=== PATIENT | female | born 1965 | race Caucasian/White ===

== ENCOUNTER → 2017-10-25 13:54 | Outpatient (CLI) | payer MEDICAID, SELFPAY ==
[2017-10-26 11:42] LABS: Hepatitis B Surface Ag Negative (NEGAT)
[2017-10-26 11:46] LABS: Hep A Total Ab w Rflx IgM Negative (NEGAT); Hep B Core Antibody Positive (NEGAT)
[2017-10-26 12:00] LABS: HIV-1/2 Ag & Ab Screen Negative (NEGAT)
[2017-10-26 12:14] LABS: HBs Antibody, Quant <3.1 mIU/mL; Hepatitis B Surface Ab Negative
[2017-10-26 13:03] LABS: HCV RNA Detection Quantitative 15955 IU/mL (UNDECT)
== END ==
PROVIDERS: PCP Nurse Practitioner; Visit Provider Nurse Practitioner
DX: B19.20 Unspecified viral hepatitis C without hepatic coma (principal); Z11.4 Encounter for screening for human immunodeficiency virus [HIV]; Z01.84 Encounter for antibody response examination
CPT/HCPCS: 36415; 86704; 86706; 86709; 87340; 87389; 87522

== ENCOUNTER 2017-12-13 01:41 | Outpatient (CLI) | payer MEDICAID, SELFPAY ==
[2017-12-13 14:28] LABS: Abs Immature Grans 0.01 k/cumm (0.0-0.09); Absolute Basophil Count 0.01 k/cumm (0.0-0.2); Absolute Eosinophil Count 0.14 k/cumm (0.0-0.7); Absolute Lymphocyte Count 2.02 k/cumm (1.2-3.4); Absolute Monocyte Count 0.32 k/cumm (0.11-0.7); Absolute Neutrophil Count 3.81 k/cumm (1.2-6.7); Basophils % 0.2; Eosinophils % 2.2; HCT 43.4 % (36.0-46.0); HGB 14.3 g/dL (12.0-15.5); Immature Grans % 0.2; Mean Corp. HGB Concentration 32.9 g/dL (32.0-36.0); Mean Corpuscular Hemoglobin 29.1 pg (27.0-33.0); Mean Corpuscular Volume 88.2 fL (80-95); Monocytes % 5.1; Neutrophils % 60.3; Platelet Count 139 x1000/uL (130-400); RBC 4.92 m/cumm (4.00-5.20); RBC Distribution Width 13.7 % (11.7-14.6); White Blood Cell Count 6.31 k/cumm (4.4-10.8)
[2017-12-13 16:01] LABS: ALT 35 U/L (12-78); AST 23 U/L (15-37); Albumin 3.5 g/dL (3.4-5.0); Alkaline Phosphatase 94 U/L (46-116); Anion Gap 8.6 mmol/L (3-11); BUN 22 mg/dL (7-18); Bilirubin, Total 0.2 mg/dL (0.2-1.0); CO2 26.4 mmol/L (21.0-32.0); CREATININE 0.73 mg/dL (0.55-1.02); Chloride 102 mmol/L (98-107); Glucose 75 mg/dL (70-100); Potassium 4.5 mmol/L (3.5-5.1); Sodium 137 mmol/L (136-145); Total Protein 8.2 g/dL (6.4-8.2)
[2017-12-14 12:57] LABS: Calcium 8.9 mg/dL (8.5-10.1)
[2017-12-14 20:36] LABS: ALT 29 U/L (7-45); ActiTest Grade A0-A1; ActiTest Interpretation no activity; ActiTest Score 0.18; Alpha-2-Macroglobulin 504 mg/dL (100 - 280); Apoliprotein A1 111 mg/dL (>=140); Bilirubin, Total 0.3 mg/dL (<=1.2); FibroTest Interpretation moderate fibrosis; FibroTest Score 0.48; FibroTest Stage F2; GGT 18 U/L (5 - 36); Haptoglobin 188 mg/dL (30 - 200)
== END 2017-12-13 02:01 ==
PROVIDERS: PCP Nurse Practitioner; Visit Provider Nurse Practitioner
DX: B19.20 Unspecified viral hepatitis C without hepatic coma (principal)
CPT/HCPCS: 36415; 80053; 82172; 82247; 82977; 83010; 83883; 84460; 85025

== ENCOUNTER 2018-03-21 15:44 | Inpatient (IN) | payer MEDICAID, SELFPAY ==
[2018-03-21] VITALS (101 sets, daily range): BP systolic 48–105; BP diastolic 29–79; PULSE 68–110; RESP 14–46; TEMP 36–36.6; O2SAT 93–100
--- NOTE | 2018-03-21 16:17 | ED.GENADUL_ITS ---
Discharge Plan Disposition Patient Disposition: [facility] INPATIENT Condition: Serious Discharge Details Chief Complaint: GenMedical Clinical Impression: Pneumonia, Sepsis, Acute kidney injury Reason For Visit: SEPSIS Admit Date/Time: 03/21/18 19:14 Admit Provider: Donaldo Real Attending Provider: Donaldo Real Primary Care Provider: Carla Corrales ED Provider: Nilda Lozoya Discharge Data Discharge Date/Time-TO BE ENTERED AT DEPARTURE: 03/21/18 19:25 Medical Decision Making <CATY Thompson - Last Filed: 03/22/18 17:41> Patient 53-year-old female presenting today with chief complaint of feeling si ck. Patient injects fentanyl multiple times daily. She reports that yesterday she ran out of this and an attempt to get high, use an old needle that had what appeared to be old blood in it. She states that a few hours after this injection, which was into her right forearm, she began feeling ill. Endorses fatigue, back pain, extremity pain, chills, nausea. Patient has known history of hepatitis C. Denies SOB or CP. No abdominal pain. Came off of Suboxone 2 weeks ago as she was also using IV fentanyl. Unknown fevers at home. Patient appears fatigued, pale with slight cyanosis of the lips. Patient hypotensive at 59/39, tachycardic at 102, temperature is low at 36.1. Oxygen 94% on room air. Lungs are clear. She is moving air comfortably. No murmur. Multiple area of injection sites with surrounding ecchymosis and track umana to bilateral lower extremities and upper extremities, more on the right side than the left. Injection site used for recent dirty needle to right forearm with No cough or URI symptoms. Denies any pinpoint pain, is rather endorsing diffuse discomfort. Dr. Cano also evaluated the patient, with BP is concerned that patient needs central line. He is placing central line now. Patient currently receiving hydration. EKG obtain and reviewed by Dr. Cano. Lactate 3.2 Patient will be started on Vanco and Cefepime. She has documented allergy to Penicillin but is unclear what occurs with this, she has been on Keflex previously and tolerated this well. Labs reviewed, WBC 14, platelet 64, patient has had low platelets historically but this is lower than typical. Anion gap 16, creatinine 2.44. AST 187, ALT 142. Patient has history of hepatitis C but has not been elevated like this historically. Total bili 4.2. CRP 6.25. Currently treating for acute kidney injury and sepsis. Patient receiving IV abx, fluid resucitation through central line and peripheral. Despite this, pressure dropped again to 52/29. Discuss[address] with Dr. Cano, starting on Levophed. Will obtain portable chest xr. CXR reviewed by radiologist: FINDINGS: Lungs: Mild hazy attenuation in the lung bases. Pleural space: Unremarkable. No pleural effusion. No pneumothorax. Heart/Mediastinum: Unremarkable. No cardiomegaly. Bones/joints: Chronic osseous changes. IMPRESSION: Atelectasis versus consolidation in the lung bases. Patient now endorsing SOB, O2 placed. Patient has good O2 on RA still. Levophed increased from 8 to 10mcg. Consulted with Dr. Real who agrees to admission, he is coming in to admit to ICU. Plan to admit for sepsis, acute kidney injury, pneumonia. Illness likely stemming from IVDU. <Paulo Cano MD - Last Filed: 03/21/18 21:28> 18:55 -- I participated directly with the care of this patient. Please see CATY Lozoya's note regarding initial ED presentation and initial course. Patient was noted to be hypotensive with poor IV access. Patient in critical care my initial assessment. I immediately evaluated the patient pt provided informed consent for emergent central line. A right femoral central line was placed without complication. Was also able to place an 18g right external ju gular peripheral IV. ECG was reviewed and interpreted by me: Sinus tachycardia 102 bpm, normal axis, Q waves are noted inferior and laterally, no STEMI. Labs were reviewed: Lactate was noted to be 3.2. Leukocytosis noted. Acute kidney injury with creatinine of 2.44 noted. Elevated LFTs noted. Patient without tenderness on abdominal exam. Blood cultures pending. Patient was aggressively resuscitated with 3.5 L of crystalloid and was started on a Levophed infusion. She remained hypotensive. Levophed infusion was titrated up to 10 mcg/min. Broad-spectrum antibiotic coverage was initiated early in her course with vancomycin and cefepime. Chest x-ray was interpreted by radiology as atelectasis versus consolidation bilateral bases. Patient was noted to have some shortness of breath and cough on exam. Patient complaining of bilateral foot pain. She has dopplerable pulses posterior tibial bilateral noted by nursing. Of note, patient has had difficulty finding pedal pulses on past ED visits. Dr. Real was contacted to admit the patient to the ICU for septic shock. Care transition to Dr. Real who is at bedside at 18:50. HPI <CATY Thompson - Last Filed: 03/22/18 17:41> General Mode of arrival: ambulatory . Date/Time Provider Initiated Documentation: 03/21/18 15:48 . Limitations to Documentation: no limitations . Information obtained by: patient . History of Present Illness 53 year old F presents to the emergency department with the chief complaint of sick, described as severe, Quality is described as aching, and is localized to the back, left, right, upper extremity and lower extremity. Patient reports no radiation. Patient started experiencing this hour(s) and it has been constant. No relieving factors improve symptom(s), No exacerbating factors reported . Patient notes fever/chills (endorses chills), loss of appetite, nausea/vomiting (nausea, no vomiting) and shortness of breath; denies chest pain, cough, diaphoresis, headaches, rash and weakness. Patient did receive the following treatments prior to arrival, none Related Data Home Medications Medication Instructions Recorded Confirmed aripiprazole [Abilify] 5 mg PO DAILY tab-cap 08/29/13 03/21/18 doxepin 10 mg PO HS 08/29/13 03/21/18 ProAir HFA 2 puff INHALATION Q6H #1 inh 02/13/14 03/21/18 buprenorphine-naloxone 2 tab PO DAILY 02/13/14 03/21/18 sertraline [Zoloft] 200 mg PO DAILY 02/13/14 03/21/18 cyclobenzaprine 10 mg PO Q8H PRN PRN #10 tab 02/25/17 03/21/18 Previous Rx's Medication Instructions Recorded ProAir HFA 2 puff INHALATION Q6H #1 inh 02/13/14 cyclobenzaprine 10 mg PO Q8H PRN PRN #10 tab 02/25/17 Allergies Allergy/AdvReac Type Severity Reaction Status Date / Time gabapentin [From Neurontin] Allergy DIZZINESS, Unverified 03/21/18 16:03 NAUSEA, SWELLING, BODY JERKS Penicillins Allergy unsure Unverified 03/21/18 16:03 duloxetine HCl AdvReac BLURRY Unverified 03/21/18 16:03 [From Cymbalta] VISION, ALTERED TASTE, NAUSEA Review of Systems <CATY Thompson - Last Filed: 03/22/18 17:41> Constitutional Reports as per HPI, Denies chills, Denies fever(s), Denies headache(s), Denies lethargy and Denies poor appetite Eyes Denies change in vision ENT Denies headache(s) Cardiovascular Reports as per HPI, Reports dyspnea and Reports dyspnea on exertion Respiratory Denies cough, Denies hemoptysis, Denies pain on inspiration, Denies pain with cough, Reports dyspnea, Reports dyspnea on exertion and Denies wheezing Gastrointestinal Reports as per HPI, Denies abdominal pain, Denies diarrhea, Denies nausea and Denies vomiting Musculoskeletal Reports as per HPI and Reports back pain Integumentary/Breasts Reports as per HPI and Denies rash Neurologic Denies headache(s) Allergic/Immunologic Denies wheezing PFSH <CATY Thompson - Last Filed: 03/22/18 17:41> Medical History Alcohol abuse Chronic ulcer of leg with fat layer exposed Depression Dysfunctional uterine bleeding GERD (gastroesophageal reflux disease) Hep C w/o coma, chronic Hypercholesterolemia IV drug abuse Surgical History section Colonoscopy - MAC EGD - MAC Social History Smoking/Tobacco Use Status: Current every day Exam <CATY Thompson - Last Filed: 03/22/18 17:41> Const General: cooperative, acute distress mild, anxious, diaphoretic and ill appearing acutely and chronically Nutritional Appearance: average body habitus Orientation: alert, awake and oriented x3 HENMT Head: normal to inspection Ears: hearing grossly normal bilaterally Mouth: mucous membranes dry (patient appears dry) Neck Neck: normal visual inspection, no lymphadenopathy and no meningeal signs Chest Chest: normal inspection of the chest, normal palpation of entire chest wall and no crepitus Resp Effort & Inspection: normal respiratory effort, able to speak in complete sentences and no respiratory distress Auscultation: clear to auscultation bilaterally, no rales, no rhonchi and no wheezes Cardio Rate: regular rate Rhythm: regular rhythm Heart Sounds: S1 normal and S2 normal GI Inspection: normal to inspection, no edema and non-distended Palpation: soft, no hepatosplenomegaly, not firm, no guarding, not rigid and nontender Auscultation: normal bowel sounds Back/Spine/Pelvis Back: no CVA tenderness Thoracic/Lumbar Spine: thoracic and lumbar spine normal to inspection Skin General skin exam: other (patient is pale, track umana and ecchymosis noted on extremities) Neuro General: alert, awake and oriented x3 Cognition: normal cognition Speech: speech normal Gait: normal gait Extrem General: abnormal to inspection (patient has track umana and ecchymosis on all extremities), full ROM, normal capillary refill, no joint enlargement, no pedal edema, no calf tenderness and normal gait Psych Appearance: grossly normal and well kempt Mental Status: mental status grossly normal Speech and Movement: speech and movement normal <Paulo Cano MD - Last Filed: 03/21/18 21:28> Central Line Placement Right Femoral: Time Out Performed: Yes MD Prep: mask, gown and gloves Central Line Prep: Chlorhexidine scrub and sterile drapes applied Local Anesthetic: Lidocaine 1% Amount of anesthesia used (mL): 5 Ultrasound Used for Placement: Yes Central Line Lumen Inserted: triple Post Procedure: good blood return, all ports aspirated, flushed, capped and sutured in place with 3-0 nylon Patient Tolerated Procedure: well and no complications <Paulo Cano MD - Last Filed: 03/21/18 21:28> Critical Care Time: Yes Total Critical Care Time: 80 Attestation: I spent greater than 80 minutes addressing this patient's immediate life threats
--- NOTE | 2018-03-21 16:31 | NUR.NOTE ---
Nursing Note: Central line being placed by MD Cano due to poor IV access.
[2018-03-21 16:39] LABS: Abs Immature Grans 0.31 k/cumm (0.0-0.09); HCT 39.6 % (36.0-46.0); HGB 13.5 g/dL (12.0-15.5); Mean Corp. HGB Concentration 34.1 g/dL (32.0-36.0); Mean Corpuscular Hemoglobin 30.1 pg (27.0-33.0); Mean Corpuscular Volume 88.2 fL (80-95); Mean Platelet Volume 11.6 fL (8.0-11.0); RBC 4.49 m/cumm (4.00-5.20); RBC Distribution Width 13.6 % (11.7-14.6); White Blood Cell Count 14.29 k/cumm (4.4-10.8)
[2018-03-21 16:43] LABS: Lactate 3.2 mmol/L (0.6-1.4)
[2018-03-21 16:46] LABS: INR 1.4 (0.9-1.1); Prothrombin Time 14.2 sec (9.3-11.0)
[2018-03-21 16:51] LABS: Platelet Count 64 x1000/uL (130-400)
[2018-03-21 16:52] LABS: Absolute Lymphocyte Count 0.29 k/cumm (1.2-3.4); Absolute Monocyte Count 1.14 k/cumm (0.11-0.7); Absolute Neutrophil Count 12.86 k/cumm (1.2-6.7); Atypical Lymphocytes % 0; Diff Comment Manual Differential
[2018-03-21 16:54] LABS: Polychromasia Present; Tear Drop Cells 2+
[2018-03-21] MEDS: Normal Saline 1,000 ML 1000 ML IV ×4 (16:55→23:22)
[2018-03-21 16:56] LABS: ALT 142 U/L (12-78); AST 187 U/L (15-37); Alkaline Phosphatase 114 U/L (46-116); Anion Gap 16.1 mmol/L (3-11); BUN 34 mg/dL (7-18); Bilirubin, Total 4.2 mg/dL (0.2-1.0); C-Reactive Protein 6.25 mg/dL (0.0-0.3); CO2 20.9 mmol/L (21.0-32.0); CREATININE 2.44 mg/dL (0.55-1.02); Calcium 8.5 mg/dL (8.5-10.1); Chloride 101 mmol/L (98-107); Estimated GFR 20.64 (mL/min/1.73m2); Glucose 87 mg/dL (70-100); Potassium 3.8 mmol/L (3.5-5.1); Sodium 138 mmol/L (136-145); Total Protein 7.1 g/dL (6.4-8.2)
[2018-03-21 17:08] LABS: Troponin I < 0.02 ng/mL (0.00-0.06)
[2018-03-21 17:16] LABS: ESR 14 MM/HR (0-30)
[2018-03-21] MEDS: CEFEPIME 2 GM in Normal Saline 100 ML IVPB (17:23)
--- NOTE | 2018-03-21 17:28 | DI.RAD_ITS ---
SYMPTOM/DIAGNOSIS: SEPSIS PORTABLE AP CHEST: A region of infiltration involving the right lower lobe is demonstrated. Also there are some ill defined densities projected over the left lung base. There is no pleural effusion. The heart is within normal limits in size. The hilar structures, mediastinum and tracheal air column as demonstrated appear intact. SUMMARY: Findings which most likely represent an acute pneumonitis. A follow up PA and lateral chest is suggested when clinically appropriate or in 6-8 weeks.
[2018-03-21] MEDS: Ondansetron 4 MG/2 ML VIAL (17:35)
[2018-03-21] MEDS: VANCOMYCIN 1,500 MG in Normal Saline 500 ML 333.3333 MG IVPB (18:00)
[2018-03-21] MEDS: Lactated Ringers 1,000 ML 1000 ML IV ×2 (18:00→18:34)
--- NOTE | 2018-03-21 18:02 | DI.VRAD_ITS ---
EXAM: XR Chest, 1 View EXAM DATE/TIME: 03/21/2018 5:43 PM CLINICAL HISTORY: 53 years old, female; Signs and symptoms; Other: Sepsis TECHNIQUE: XR of the chest, 1 view. COMPARISON: CR CHEST 2 VIEWS PA,LAT 04/09/2014 4:02 PM FINDINGS: Lungs: Mild hazy attenuation in the lung bases. Pleural space: Unremarkable. No pleural effusion. No pneumothorax. Heart/Mediastinum: Unremarkable. No cardiomegaly. Bones/joints: Chronic osseous changes. IMPRESSION: Atelectasis versus consolidation in the lung bases. Dictated and Authenticated by: Uvaldo Arevalo MD. Ordering:ISAIAH Munguia MD
--- NOTE | 2018-03-21 18:48 | NUR.NOTE ---
crying that her feet ache. pedal pulses not heard with dopplar but ankle pulses heard.Nursing Note:
--- NOTE | 2018-03-21 19:11 | HPE_ITS ---
Date of service: 03/21/18 Time of Service: 18:57 Assessment and Plan (1) Sepsis: Current visit: Yes Status: Acute Sepsis, presumably secondary to contaminated injection. Unclear if we have a specific locus of infection at present. Specifically, the chest x-ray findings are noted but this would be early to see consolidation from a triggering event only hours ago though certainly we cannot be absolutely sure that the inciting event was in fact this morning's injection. Regardless patient is exhibiting signs and symptoms of septic shock and will continue fluid resuscitation along with pressors and broad-spectrum antibiotics pending culture results. Patient manifesting findings of multiorgan involvement with with acute kidney injury and elevated liver enzyme History of Present Illness Narrative: Patient is a 53-year-old female with history of IV drug abuse. She shot up some fentanyl this morning with a dirty needle. Sometime thereafter she started feeling weak, diffuse myalgias, headache, nausea and generally feeling poorly. Emergency room and was noted to be in septic shock with initial blood pressures in the 50s. Blood cultures were obtained, she has been given fluid resuscitation (4 L at present) and loading doses of vancomycin and cefepime and started on levo. Blood pressure is currently in the 80s. She is admitted for further evaluation and management Past medical history: IV drug abuse, GERD, depression, hep C, dysfunctional uterine bleeding, status post Allergies to gabapentin, question penicillin, Cymbalta Medications: Abilify 5 daily buprenorphine, as needed Flexeril, doxepin 10 at bedtime, Pro Air as needed, Zoloft 200 Exam: Blood pressure currently 82 systolic, pulse 105, temp 36.1. Patient is lying semirecumbent in the stretcher and appears disheveled and modestly uncom fortable. HEENT shows no signs of head trauma. Neck supple lungs show rales right base. Heart tachycardic and regular, no murmurs appreciated abdomen soft nontender without hepatosplenomegaly. Pelvic and rectal exams deferred. Extremities show multiple excoriation and ulceration, the right forearm there is an area of ecchymosis medially just distal to the elbow which the patient identifies as the injection site. Neurologically she is alert and oriented moves all 4 external Laboratory: White count 14.2 hematocrit 39 platelets 60. INR 1.4 (I have no old IN INR) sodium 138 potassium 3.8 chloride 101 bicarb 20 BUN 34 creatinine 2.4 glucose 87 lactate 3.2 total bili 4.2 AST 187 ALT 142 chest x-ray shows probable infiltrate right base, urine is pending Review of Systems Review of Systems All systems reviewed & are unremarkable except as noted in HPI and below PFSH Medical History Alcohol abuse Chronic ulcer of leg with fat layer exposed Depression Dysfunctional uterine bleeding GERD (gastroesophageal reflux disease) Hep C w/o coma, chronic Hypercholesterolemia IV drug abuse Surgical History section Colonoscopy - MAC EGD - MAC Social History Smoking/Tobacco Use Status: Current every day Meds Home Medications Medication Instructions Recorded Confirmed Type aripiprazole [Abilify] 5 mg PO DAILY tab-cap 08/29/13 03/21/18 History doxepin 10 mg PO HS 08/29/13 03/21/18 History ProAir HFA 2 puff INHALATION Q6H #1 inh 02/13/14 03/21/18 Rx buprenorphine-naloxone 2 tab PO DAILY 02/13/14 03/21/18 History sertraline [Zoloft] 200 mg PO DAILY 02/13/14 03/21/18 History cyclobenzaprine 10 mg PO Q8H PRN PRN #10 tab 02/25/17 03/21/18 Rx Allergies Allergy/AdvReac Type Severity Reaction Status Date / Time gabapentin [From Neurontin] Allergy DIZZINESS, Unverified 03/21/18 16:03 NAUSEA, SWELLING, BODY JERKS Penicillins Allergy unsure Unverified 03/21/18 16:03 duloxetine HCl AdvReac BLURRY Unverified 03/21/18 16:03 [From Cymbalta] VISION, ALTERED TASTE, NAUSEA Exam Narrative Exam Narrative: per HPI Results Labs : 03/21/18 16:15 03/21/18 16:15 Laboratory Results - last 24 hr 03/21/18 03/21/18 03/21/18 16:15 16:15 16:15 WBC 14.29 H RBC 4.49 Hgb 13.5 Hct 39.6 MCV 88.2 MCH 30.1 MCHC 34.1 RDW 13.6 Plt Count 64 L MPV 11.6 H Immature Gran % 0.0 Neutrophils % 76.0 Band Neutrophils % 14.0 Lymphocytes % 2.0 Atypical Lymphs % 0 Monocytes % 8.0 Eosinophils % 0.0 Basophils % 0.0 Absolute Neutrophils 12.86 H Absolute Lymphocytes 0.29 L Absolute Monocytes 1.14 H Absolute Eosinophils 0.00 Absolute Basophils 0.00 Differential Comment Manual differential RBC Morphology See below Polychromasia Present Tear Drop Cells 2+ ESR 14 PT INR Sodium 138 Potassium 3.8 Chloride 101 Carbon Dioxide 20.9 L Anion Gap 16.1 H BUN 34 H Creatinine 2.44 H Estimated GFR/1.73 m2 20.64 Glucose 87 Lactate 3.2 H* Calcium 8.5 Total Bilirubin 4.2 H AST 187 H ALT 142 H Alkaline Phosphatase 114 Troponin I C-Reactive Protein 6.25 H Total Protein 7.1 Albumin 3.0 L 03/21/18 03/21/18 16:15 16:15 WBC RBC Hgb Hct MCV MCH MCHC RDW Plt Count MPV Immature Gran % Neutrophils % Band Neutrophils % Lymphocytes % Atypical Lymphs % Monocytes % Eosinophils % Basophils % Absolute Neutrophils Absolute Lymphocytes Absolute Monocytes Absolute Eosinophils Absolute Basophils Differential Comment RBC Morphology Polychromasia Tear Drop Cells ESR PT 14.2 H INR 1.4 H Sodium Potassium Chloride Carbon Dioxide Anion Gap BUN Creatinine Estimated GFR/1.73 m2 Glucose Lactate Calcium Total Bilirubin AST ALT Alkaline Phosphatase Troponin I < 0.02 C-Reactive Protein Total Protein Albumin Last Vital Signs Temp 36.1 C L 03/21/18 15:56 Pulse 98 H 03/21/18 18:40 Resp 31 H 03/21/18 18:41 BP 77/61 L 03/21/18 18:40 Pulse Ox 100 03/21/18 18:41
[2018-03-21 19:14] LABS: Bilirubin Large (Negative); Blood Moderate (Negative); Clarity Cloudy; Glucose Negative (Negative); Ketones 15 mg/dL (Negative); Leukocyte Esterase Negative (Negative); Nitrite Negative (Negative); Specific Gravity 1.025 (1.005-1.025); pH 5.5 (5-8)
[2018-03-21 19:28] LABS: RBC >50 (0-2); WBC Negative HPF (0-5)
[2018-03-21 19:29] LABS: Bacteria Moderate HPF (Negative); Casts 3-5 Fine Granular LPF (Negative); Crystals Negative HPF (Negative); Epithelial Cells Moderate HPF (Negative); Mucus Moderate (Negative); Other Cells Negative (Negative)
[2018-03-21 19:30] LABS: C & S Indicated? No/Sq. Contamination
[2018-03-21] MEDS: Normal Saline Flush 10 ML SYR IVP (20:25)
[2018-03-21] MEDS: PHYTONADIONE 10 MG in Normal Saline 50 ML 200 MG IVPB (20:30)
[2018-03-21] MEDS: Normal Saline 1,000 ML 250 ML IV (20:45)
[2018-03-22] VITALS (120 sets, daily range): BP systolic 81–135; BP diastolic 57–99; PULSE 83–116; RESP 11–45; TEMP 36.5–37.2; O2SAT 90–100
[2018-03-22] MEDS: LORazepam 0.5 MG TAB PO ×4 (04:04→20:20)
[2018-03-22] MEDS: Normal Saline Flush 10 ML SYR IVP ×2 (06:45→11:36)
[2018-03-22 07:06] LABS: HCT 36.2 % (36.0-46.0); HGB 12.2 g/dL (12.0-15.5); Mean Corp. HGB Concentration 33.7 g/dL (32.0-36.0); Mean Corpuscular Hemoglobin 30.2 pg (27.0-33.0); Mean Corpuscular Volume 89.6 fL (80-95); Mean Platelet Volume 12.7 fL (8.0-11.0); Platelet Count 58 x1000/uL (130-400); RBC 4.04 m/cumm (4.00-5.20); RBC Distribution Width 13.9 % (11.7-14.6)
[2018-03-22 07:13] LABS: White Blood Cell Count 32.01 k/cumm (4.4-10.8)
[2018-03-22 07:25] LABS: ALT 195 U/L (12-78); AST 246 U/L (15-37); Anion Gap 13.3 mmol/L (3-11); BUN 27 mg/dL (7-18); Bilirubin, Total 4.1 mg/dL (0.2-1.0); CO2 16.7 mmol/L (21.0-32.0); CREATININE 1.59 mg/dL (0.55-1.02); Calcium 6.5 mg/dL (8.5-10.1); Chloride 110 mmol/L (98-107); Estimated GFR 33.83 (mL/min/1.73m2); Glucose 135 mg/dL (70-100); Potassium 3.8 mmol/L (3.5-5.1); Sodium 140 mmol/L (136-145)
[2018-03-22 07:59] LABS: INR 1.6 (0.9-1.1); Prothrombin Time 15.7 sec (9.3-11.0)
[2018-03-22 08:12] LABS: Creatine Kinase 127 U/L (26-192); Magnesium 1.3 mg/dL (1.8-2.4)
[2018-03-22 08:23] LABS: Lactate 1.8 mmol/L (0.6-1.4)
[2018-03-22] MEDS: Normal Saline 1,000 ML 250 ML IV ×2 (08:30→13:46)
--- NOTE | 2018-03-22 08:58 | DI.CT_ITS ---
SYMPTOMS/DIAGNOSIS: SEPSIS, ? PNEUMONIA, ELEVATED LFTS CT EXAMINATION OF THE CHEST, ABDOMEN AND PELVIS: The study was carried out without contrast enhancement. CHEST: There are small bilateral pleural effusions. Patchy pulmonary densities are most prominent in the right middle lobe, lingula and in both lower lobes. There is no evidence of a mass on this noncontrast enhanced study. There is bilateral hilar and mediastinal adenopathy. The heart is not enlarged. There is no pericardial effusion. The unopacified aorta appears unremarkable save for minimal atherosclerotic change. No significant bony abnormality is identified. SUMMARY: Findings consistent with bilateral pleural effusions, pulmonary infiltrates and hilar and mediastinal adenopathy. These findings could certainly be on the basis of an acute pneumonitis and a concomitant malignancy. Additional information would be of value in the further imaging of this patient. ABDOMEN AND PELVIS: The study was carried out without oral or contrast material in this patient with poor renal function. The unopacified liver appears grossly intact. Note is made of an apparent sizeable quantity of pericholecystic fluid and the border between the pancreas and the adjacent liver is not well defined. Note is also made of ascitic fluid in the abdomen and pelvis. There is no evidence of biliary dilatation. Increased density is noted in the peripancreatic fat and the possibility of pancreatitis would certainly also have to be considered in this patient. Increased density is identified in the mesentery and subcutaneous fat in the abdomen and pelvis, which would be consistent with anasarca. The unopacified kidneys appear intact. There is no evidence of hydronephrosis, or nephrolithiasis or ureterolithiasis. The bladder is decompressed and contains a Bai catheter. A small quantity of gas is noted in the bladder, presumably related to the catheterization procedure. The uterus appears intact. There is a moderate quantity of free fluid in the pelvis. There is some prominence of the adrenals, raising the possibility of adrenal hyperplasia. Note is also made in this patient of a moderate quantity of free fluid in the pelvis. The bladder is decompressed, Bai catheter in place. The reproductive organs as visualized appear grossly normal. There are mild atherosclerotic changes involving the aorta without evidence of an aneurysm. No significant bony abnormality is appreciated. SUMMARY: A small quantity of ascitic fluid is demonstrated with puddling in the pelvis on this examination. There are findings involving the pancreas and peripancreatic tissues, raising the possibility of acute pancreatitis. Also, there is a dilated gallbladder and a considerable quantity of pericholecystic fluid. Increased absorption in the mesenteric fat and increased absorption in the subcutaneous fat is identified in this patient, the findings suggesting anasarca.
[2018-03-22 11:09] LABS: Lactate 1.4 mmol/L (0.6-1.4)
[2018-03-22 11:14] LABS: Site Right Femoral; pCO2 25 mmHg (34-47); pH 7.31 (7.35-7.45); pO2 40 mmHg (83-108)
[2018-03-22 11:15] LABS: HCO3 13 mmol/L (22-28); sO2 72 % (94-98); tCO2 13 mmol/L (22-29)
[2018-03-22] MEDS: MAGNESIUM SULFATE 4 GM/100 ML BAG IVPB (11:34)
--- NOTE | 2018-03-22 13:10 | MERGE_ITS ---
*[facility]* *[facility]* [address] [place] [address] Date of study: 03/22/2018 Transthoracic Echocardiography M-mode, complete 2D, complete spectral Doppler, and color Doppler *STUDY CONCLUSIONS* Impressions: There are no typical features of vegetative endocarditis. Consider transesophageal echocardiography, if clinically indicated. Summary: 1. Left ventricle: The cavity size was normal. Wall thickness was normal. Systolic function was normal. The estimated ejection fraction was 55-60%. Wall motion was normal; there were no regional wall motion abnormalities. 2. Aortic valve: Trileaflet; mildly thickened, mildly calcified leaflets. 3. Mitral valve: Mildly thickened leaflets. There was mild regurgitation. 4. Right ventricle: The cavity size was normal. Wall thickness was normal. Systolic function was normal. 5. Tricuspid valve: Structurally normal valve. There was mild-moderate regurgitation. 6. Pulmonary arteries: Pulmonary systolic pressure was increased, in the range of 35mm Hg to 45mm Hg. *PATIENT PRESENTATION* Height: 160cm ((63in) ) S/D Pressure: 105 / 82 Weight: 73.9kg ((162.7lb) ) BSA: 1.84m^2 Test start time: 01:20 PM. Test stop time: 02:20 PM. PERFORMING Unknown PERFORMING [facility] CONSULTING Carla Corrales REFINERY OPERATOR REFORMING UNIT Brandie Clay RT (R)(CT), CS ORDERING Roxie Reed REFERRING Roxie Reed *PROCEDURE DATA* Procedure information: The patient was identified by two identifiers. This study was interpreted by [facility]. Pertinent images and digital data are archived for permanent storage and are available for subsequent review. No prior study was available for comparison. Study status: Routine. Transthoracic echocardiography. M-mode, complete 2D, complete spectral Doppler, and color Doppler. A Transthoracic Echocardiogram was performed. Scanning was performed from the parasternal, apical, subcostal, and suprasternal notch acoustic windows. Images were obtained using an [id number] cardiac ultrasound machine. Image quality was good. Study completion: The patient tolerated the procedure well. There were no complications. History: PMH: R/o endocarditis. *CARDIAC ANATOMY* Left ventricle: The cavity size was normal. Wall thickness was normal. Systolic function was normal. The estimated ejection fraction was 55-60%. Wall motion was normal; there were no regional wall motion abnormalities. Diastolic parameters were normal for age. Aortic valve: Trileaflet; mildly thickened, mildly calcified leaflets. Mobility was not restricted. Doppler: Transvalvular velocity was within the normal range. There was no stenosis. There was no significant regurgitation. VTI ratio of LVOT to aortic valve: 0.7. Valve area (VTI): 1.7cm^2. Indexed valve area (VTI): 0.9cm^2/m^2. Peak velocity ratio of LVOT to aortic valve: 0.61. Valve area (Vmax): 1.4cm^2. Indexed valve area (Vmax): 0.8cm^2/m^2. Mean velocity ratio of LVOT to aortic valve: 0.78. Valve area (Vmean): 1.8cm^2. Indexed valve area (Vmean): 1cm^2/m^2. Mean gradient (S): 5.9mm Hg. Peak gradient (S): 14.4mm Hg. Aorta: Aortic root: The aortic root was normal in size. Ascending aorta: The ascending aorta was normal in size. Mitral valve: Mildly thickened leaflets. Mobility was not restricted. Doppler: Transvalvular velocity was within the normal range. There was no evidence for stenosis. There was mild regurgitation. Valve area by pressure half-time: 4.1cm^2. Indexed valve area by pressure half-time: 2.2cm^2/m^2. Peak gradient (D): 7.1mm Hg. Left atrium: The atrium was normal in size. Right ventricle: The cavity size was normal. Wall thickness was normal. Systolic function was normal. Pulmonic valve: Structurally normal valve. Doppler: Transvalvular velocity was within the normal range. There was no evidence for stenosis. There was trivial regurgitation. Peak gradient (S): 3.5mm Hg. Tricuspid valve: Structurally normal valve. Doppler: Transvalvular velocity was within the normal range. There was no evidence for stenosis. There was mild-moderate regurgitation. Pulmonary artery: Pulmonary systolic pressure was increased, in the range of 35mm Hg to 45mm Hg. Right atrium: The atrium was normal in size. Pericardium: There was no pericardial effusion. Systemic veins: Inferior vena cava: Well visualized. The vessel was patent and normal in size. Respirophasic changes in dimension were absent. Baseline ECG: Normal sinus rhythm. Measurements Left ventricle Value Reference LV ID, ED, PLAX 4.5 cm 3.5 - 6.0 LV ID, ES, PLAX 3.2 cm 2.1 - 4.0 LV PW thickness, ED, PLAX 0.9 cm LV end-diastolic volume, 1-p A2C 80 ml LV ejection fraction, 1-p A2C 49 % LV end-diastolic volume, 1-p A4C 67 ml LV ejection fraction, 1-p A4C 52 % LV e', lateral 0.09 m/sec LV E/e', lateral 15 LV e', medial 0.11 m/sec LV E/e', medial 12 LV e', average 0.1 m/sec LV E/e', average 13 Ventricular septum Value Reference IVS thickness, ED, PLAX 0.8 cm LVOT Value Reference LVOT ID, A-P 1.7 cm LVOT area 2.4 cm^2 LVOT peak velocity, S 1.16 m/sec LVOT mean velocity, S 0.88 m/sec LVOT VTI, S 18.3 cm LVOT peak gradient, S 5.4 mm Hg LVOT mean gradient, S 3.3 mm Hg Stroke volume (SV), LVOT DP 43 ml Stroke index (SV/bsa), LVOT DP 24 ml/m^2 Aortic valve Value Reference Aortic valve peak velocity, S 1.9 m/sec Aortic valve mean velocity, S 1.13 m/sec Aortic valve VTI, S 26.0 cm Aortic mean gradient, S 5.9 mm Hg Aortic peak gradient, S 14.4 mm Hg VTI ratio, LVOT/AV 0.7 Aortic valve area, VTI 1.7 cm^2 Velocity ratio, peak, LVOT/AV 0.61 Aortic valve area, peak velocity 1.4 cm^2 Velocity ratio, mean, LVOT/AV 0.78 Aortic valve area, mean velocity 1.8 cm^2 Aortic valve area/bsa, mean velocity 1 cm^2/m^2 Aorta Value Reference Aortic root ID, ED 2.7 cm Ascending aorta ID, A-P, S 3.1 cm Left atrium Value Reference LA ID, A-P, ES 4.2 cm LA ID/bsa, A-P (H) 2.3 cm/m^2 <=2.2 LA area, ES, A4C 20.1 cm^2 8.8 - 23.4 LA area, ES, A2C 16 cm^2 LA volume/bsa, ES, 1-p A4C 36 ml/m^2 LA volume, ES, 2-p 58 ml LA volume/bsa, ES, 2-p 31 ml/m^2 LA/aortic root ratio 1.58 Mitral valve Value Reference Mitral E-wave peak velocity 1.34 m/sec Mitral A-wave peak velocity 1 m/sec Mitral deceleration time 185 ms 150 - 230 Mitral pressure half-time 54 ms Mitral peak gradient, D 7.1 mm Hg Mitral E/A ratio, peak 1.33 Mitral valve area, PHT, DP 4.1 cm^2 Tricuspid valve Value Reference Tricuspid regurg peak velocity 3.4 m/sec Tricuspid peak RV-RA gradient 45.7 mm Hg Right atrium Value Reference RA area, ES, A4C 14.1 cm^2 8.3 - 19.5 Pulmonic valve Value Reference Pulmonic peak gradient, S 3.5 mm Hg Legend: (L) and (H) kelly values outside specified reference range. I have personally reviewed the images and have reviewed and edited the reported findings. Electronically signed by Joes R Millan 03/22/2018 15:48
[2018-03-22 13:26] LABS: *AMPHETAMINES SCREEN URINE Negative (Negative); *BARBITURATES SCREEN URINE Negative (Negative); *BENZODIAZEPINES SCREEN URINE Negative (Negative); Cannabinoids THC Negative (Negative); Cocaine Screen,Urine POSITIVE (Negative); METHADONE URINE SCREEN Negative (Negative); OPIATES URINE SCREEN Negative (Negative)
[2018-03-22 13:28] LABS: Tricyclic Antidepressants Negative (Negative)
--- NOTE | 2018-03-22 14:36 | PHARADMIT ---
Addendum entered by Anoop Fraser III 03/24/18 17:08: Patient is being transferred to [facility] this evening, Vancomycin trough will be drawn and reported to [facility]. Original Note: Addendum entered by Anoop Fraser III 03/23/18 14:34: Pharmacy Note Subjective Objective Assessment Plan Pharmacy Note Subjective GRAM NEGATIVE SEPTIC SHOCK, patient is also fluid overloaded. Patient has responded to Lasix (-7.9 L I&Os) Objective VS-OK HR-102 K+2.3 WBC-18.02, SCr-1.11 Wgt-down 72.1 kg Assessment On Vanco, & Cefepime. replacement K+ ordered Plan Watch for results of new blood cultures, Vanco trough tomorrow at 1700 Original Note: Admission Pharmacy Clinical Review SEPSIS Code Status Full Code Current Weight 74.1 kg Renally Cleared and Narrow Therapeutic Index Meds CRCL ~33ML/MIN QTc Value / Action Taken 479 BP Control, Fever 105/82 AFEBRILE Electrolytes reviewed MAG 1.3, CORRECTED CA 7.3, DVT Prophylaxis NO, LOW PLT'S Opiate Usage / Scheduled Bowel Regimen Ordered NO/NO Plt/SCr for Heparin / Enoxaparin 58/1.59 INR for Warfarin NA H/H stable, WBC/Bands 12.2/36.2 WBC 32.01 Antibiotic appropriateness VANCOMYCIN/CEFEPIME Cultures and Sensitivities BC GRAM NEG BECKY Surgical ABX d/c within 24 hr NA DM control / Insulin Dosing NA Heart Failure (Check EF%) (HUMPHREY's, B-Block, Diuretics) NA IV to PO Switch NO PO Home Meds Reviewed aripiprazole [Abilify] 5 mg PO DAILY tab-cap 08/29/13 doxepin 10 mg PO HS 08/29/13 [History Confirmed 03/21/18] ProAir HFA 2 puff INHALATION Q6H #1 inh 02/13/14 [Rx Confirmed 03/21/18] buprenorphine-naloxone 2 tab PO DAILY 02/13/14 [History Confirmed 03/21/18] sertraline [Zoloft] 200 mg PO DAILY 02/13/14 [History Confirmed 03/21/18] cyclobenzaprine 10 mg PO Q8H PRN PRN #10 tab 02/25/17 Home Meds Not Ordered Comments NOREPINEPHRINE INFUSION STARTED BUT AT THIS TIME IS STOPPED
[2018-03-22 14:46] LABS: Lactate 1.3 mmol/L (0.6-1.4)
--- NOTE | 2018-03-22 15:00 | DI.US_ITS ---
SYMPTOMS/DIAGNOSIS: SEPSIS, BILATERAL LOWER EXTREMITY SWELLING, SUSPECTED THROMBOPHLEBITIS, ? DVT RIGHT LEG ULTRASOUND: There is no evidence of DVT. Note is made of a right-sided femoral vein catheter. LEFT LEG ULTRASOUND: There is no evidence of DVT. IMPRESSION: Normal left leg ultrasound.
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
[2018-03-22] MEDS: CEFEPIME 2 GM in Normal Saline 100 ML IVPB (16:45)
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
--- NOTE | 2018-03-22 18:51 | PGE_ITS ---
Date of Service Date of service: 03/22/18 Time of Service: 11:00 Assessment and Plan (1) Septic shock: Current visit: Yes Status: Resolved Resolved. BP's maintaining without levophed. As below. (2) Gram negative sepsis: Current visit: Yes Status: Acute Blood cx positive for GNR. Repeat cultures in am. Echo with mild to modrate tricuspid regurgitation; no valvular pathology named per se (TTE). Continue empiric vanco/cefepime, awaiting speciation/sensitivities. (3) Community acquired pneumonia: Current visit: Yes Status: Acute As above (4) Thrombocytopenia: Current visit: No Status: Chronic Acute on chronic, partially due to hepatitis C. Abstain from chemical DVT ppx. Monitor CBC. (5) Hepatitis C: Current visit: No Status: Chronic Obtain US RUQ given findings on RUQ. (6) IV drug abuse: Current visit: Yes Status: Chronic Monitor for withdrawal. Check HIV (7) GERD (gastroesophageal reflux disease): Current visit: Yes Status: Chronic IV PPI (8) Discharge planning issues: Current visit: Yes Status: Acute Full Code (9) DVT prophylaxis: Current visit: Yes Status: Acute SCD's + TEDs Subjective Interval history since last seen: The patient states she feels really tired and achy. Otherwise, denies dizziness, chest pain, shortness of breath, nausea, vomiting. Denies abdominal pain. Levophed was weaned off this morning and blood pressures have been maintaining. Exam Narrative Exam Narrative: General: Middle aged female, laying comfortably in bed, awake, fully alert and oriented, NAD HEENT: EOMI, MMM Heart: RRR, tachycardic Lungs: CTAB GI: abdomen soft, nontender, nondistended Extremities: Ecchymosis R elbow; Hyperpigmentation BLE's/feet, +1 BLE edema, no clubbing or cyanosis Objective Objective Clinical Data: Abnormal lab results 03/21/18 03/22/18 03/22/18 Range/Units 19:04 06:33 06:33 WBC 32.01 H* D (4.4-10.8) k/cumm Plt Count 58 L (130-400) x1000/uL MPV 12.7 H (8.0-11.0) fL PT (9.3-11.0) sec INR (0.9-1.1) pCO2 (34-47) mmHg pO2 (83-108) mmHg O2 Saturation (94-98) % ABG pH (7.35-7.45) ABG HCO3 (22-28) mmol/L ABG Total CO2 (22-29) mmol/L ABG Base Excess (-3-3) mmol/L Chloride 110 H (98-107) mmol/L Carbon Dioxide 16.7 L (21.0-32.0) mmol/L Anion Gap 13.3 H (3-11) mmol/L BUN 27 H (7-18) mg/dL Creatinine 1.59 H D (0.55-1.02) mg/dL Glucose 135 H (70-100) mg/dL Lactate (0.6-1.4) mmol/L Calcium 6.5 L (8.5-10.1) mg/dL Magnesium (1.8-2.4) mg/dL Total Bilirubin (0.2-1.0) mg/dL AST 246 H (15-37) U/L ALT 195 H (12-78) U/L C-Reactive Protein (0.0-0.3) mg/dL Urine Protein >=300 H (Negative) mg/dL Urine Ketones 15 H (Negative) mg/dL Urine Blood Moderate H (Negative) Urine Bilirubin Large H (Negative) Urine Urobilinogen 2.0 H (Up TO 0.2) EU/dL Urine RBC >50 H (0-2) 03/22/18 03/22/18 03/22/18 Range/Units 06:33 06:33 06:33 WBC (4.4-10.8) k/cumm Plt Count (130-400) x1000/uL MPV (8.0-11.0) fL PT 15.7 H (9.3-11.0) sec INR 1.6 H (0.9-1.1) pCO2 (34-47) mmHg pO2 (83-108) mmHg O2 Saturation (94-98) % ABG pH (7.35-7.45) ABG HCO3 (22-28) mmol/L ABG Total CO2 (22-29) mmol/L ABG Base Excess (-3-3) mmol/L Chloride (98-107) mmol/L Carbon Dioxide (21.0-32.0) mmol/L Anion Gap (3-11) mmol/L BUN (7-18) mg/dL Creatinine (0.55-1.02) mg/dL Glucose (70-100) mg/dL Lactate (0.6-1.4) mmol/L Calcium (8.5-10.1) mg/dL Magnesium 1.3 L (1.8-2.4) mg/dL Total Bilirubin 4.1 H (0.2-1.0) mg/dL AST (15-37) U/L ALT (12-78) U/L C-Reactive Protein 13.90 H (0.0-0.3) mg/dL Urine Protein (Negative) mg/dL Urine Ketones (Negative) mg/dL Urine Blood (Negative) Urine Bilirubin (Negative) Urine Urobilinogen (Up TO 0.2) EU/dL Urine RBC (0-2) 03/22/18 03/22/18 Range/Units 08:06 10:50 WBC (4.4-10.8) k/cumm Plt Count (130-400) x1000/uL MPV (8.0-11.0) fL PT (9.3-11.0) sec INR (0.9-1.1) pCO2 25 L (34-47) mmHg pO2 40 L (83-108) mmHg O2 Saturation 72 L (94-98) % ABG pH 7.31 L (7.35-7.45) ABG HCO3 13 L (22-28) mmol/L ABG Total CO2 13 L (22-29) mmol/L ABG Base Excess -14.0 L (-3-3) mmol/L Chloride (98-107) mmol/L Carbon Dioxide (21.0-32.0) mmol/L Anion Gap (3-11) mmol/L BUN (7-18) mg/dL Creatinine (0.55-1.02) mg/dL Glucose (70-100) mg/dL Lactate 1.8 H (0.6-1.4) mmol/L Calcium (8.5-10.1) mg/dL Magnesium (1.8-2.4) mg/dL Total Bilirubin (0.2-1.0) mg/dL AST (15-37) U/L ALT (12-78) U/L C-Reactive Protein (0.0-0.3) mg/dL Urine Protein (Negative) mg/dL Urine Ketones (Negative) mg/dL Urine Blood (Negative) Urine Bilirubin (Negative) Urine Urobilinogen (Up TO 0.2) EU/dL Urine RBC (0-2) Vital Signs Temperature 37.1 C 03/22/18 16:49 Temperature Source Temporal Artery Scan 03/22/18 16:49 Pulse 105 H 03/22/18 16:30 Pulse 104 H 03/22/18 16:50 Respiratory Rate 30 H 03/22/18 16:50 Respiratory Effort Non-Labored 03/22/18 16:49 Respiratory Depth Shallow 03/22/18 16:49 Respiratory Pattern Tachypnea 03/22/18 16:49 Blood Pressure 97/61 L 03/22/18 16:30 Blood Pressure Mean 70 03/22/18 16:30 Blood Pressure Position Supine 03/22/18 03:05 Pulse Oximetry 97 03/22/18 16:50 Oxygen Delivery Method Nasal Cannula 03/22/18 03:05 Oxygen Flow Rate 2 03/22/18 03:05 Pain Level 0 03/22/18 16:49 Intake & Output 03/21/18 03/22/18 03/22/18 23:59 11:59 23:59 Intake Total 5900.000 / 5900.000 2339.848 / 4460.848 2121 / 4460.848 Output Total 295 / 295 1275 / 2375 1100 / 2375 Balance 5605.000 / 5605.000 1064.848 / 2085.848 1021 / 2085.848 Weight 73.3 kg 74.1 kg Intake: IV 5900.000 / 5900.000 2339.848 / 3860.848 1521 / 3860.848 Oral 600 / 600 Output: Urine 295 / 295 1275 / 2375 1100 / 2375 Other: Urine Color Dark Gemma Dark Gemma Dark Gemma Urine Appearance Cloudy Cloudy Cloudy Sediment Comment Bai in place. Bai in place Bai in place Laboratory Results WBC 32.01 k/cumm (4.4-10.8) H* D 03/22/18 06:33 RBC 4.04 m/cumm (4.00-5.20) 03/22/18 06:33 Hgb 12.2 g/dL (12.0-15.5) 03/22/18 06:33 Hct 36.2 % (36.0-46.0) 03/22/18 06:33 MCV 89.6 fL (80-95) 03/22/18 06:33 MCH 30.2 pg (27.0-33.0) 03/22/18 06:33 MCHC 33.7 g/dL (32.0-36.0) 03/22/18 06:33 RDW 13.9 % (11.7-14.6) 03/22/18 06:33 Plt Count 58 x1000/uL (130-400) L 03/22/18 06:33 MPV 12.7 fL (8.0-11.0) H 03/22/18 06:33 Immature Gran % 0.0 03/21/18 16:15 Neutrophils % 76.0 03/21/18 16:15 Band Neutrophils % 14.0 % 03/21/18 16:15 Lymphocytes % 2.0 03/21/18 16:15 Atypical Lymphs % 0 03/21/18 16:15 Monocytes % 8.0 03/21/18 16:15 Eosinophils % 0.0 03/21/18 16:15 Basophils % 0.0 03/21/18 16:15 Absolute Neutrophils 12.86 k/cumm (1.2-6.7) H 03/21/18 16:15 Absolute Lymphocytes 0.29 k/cumm (1.2-3.4) L 03/21/18 16:15 Absolute Monocytes 1.14 k/cumm (0.11-0.7) H 03/21/18 16:15 Absolute Eosinophils 0.00 k/cumm (0.0-0.7) 03/21/18 16:15 Absolute Basophils 0.00 k/cumm (0.0-0.2) 03/21/18 16:15 Differential Comment Manual differential 03/21/18 16:15 RBC Morphology See below 03/21/18 16:15 Polychromasia Present 03/21/18 16:15 Tear Drop Cells 2+ 03/21/18 16:15 ESR 14 MM/HR (0-30) 03/21/18 16:15 PT 15.7 sec (9.3-11.0) H 03/22/18 06:33 INR 1.6 (0.9-1.1) H 03/22/18 06:33 Sample Site Right femoral 03/22/18 10:50 pCO2 25 mmHg (34-47) L 03/22/18 10:50 pO2 40 mmHg (83-108) L 03/22/18 10:50 O2 Saturation 72 % (94-98) L 03/22/18 10:50 ABG pH 7.31 (7.35-7.45) L 03/22/18 10:50 ABG HCO3 13 mmol/L (22-28) L 03/22/18 10:50 ABG Total CO2 13 mmol/L (22-29) L 03/22/18 10:50 ABG Base Excess -14.0 mmol/L (-3-3) L 03/22/18 10:50 VBG pH Cancelled 03/22/18 Unknown VBG pCO2 Cancelled 03/22/18 Unknown VBG pO2 Cancelled 03/22/18 Unknown VBG HCO3 Cancelled 03/22/18 Unknown VBG Total CO2 Cancelled 03/22/18 Unknown VBG O2 Saturation Cancelled 03/22/18 Unknown VBG Base Excess Cancelled 03/22/18 Unknown Sodium 140 mmol/L (136-145) 03/22/18 06:33 Potassium 3.8 mmol/L (3.5-5.1) 03/22/18 06:33 Chloride 110 mmol/L (98-107) H 03/22/18 06:33 Carbon Dioxide 16.7 mmol/L (21.0-32.0) L 03/22/18 06:33 Anion Gap 13.3 mmol/L (3-11) H 03/22/18 06:33 BUN 27 mg/dL (7-18) H 03/22/18 06:33 Creatinine 1.59 mg/dL (0.55-1.02) H D 03/22/18 06:33 Estimated GFR/1.73 m2 33.83 (mL/min/1.73m2) 03/22/18 06:33 Glucose 135 mg/dL (70-100) H 03/22/18 06:33 Lactate 1.3 mmol/L (0.6-1.4) 03/22/18 14:30 Calcium 6.5 mg/dL (8.5-10.1) L 03/22/18 06:33 Magnesium 1.3 mg/dL (1.8-2.4) L 03/22/18 06:33 Total Bilirubin 4.1 mg/dL (0.2-1.0) H 03/22/18 06:33 AST 246 U/L (15-37) H 03/22/18 06:33 ALT 195 U/L (12-78) H 03/22/18 06:33 Alkaline Phosphatase 114 U/L (46-116) 03/21/18 16:15 Creatine Kinase 127 U/L (26-192) 03/22/18 06:33 Troponin I < 0.02 ng/mL (0.00-0.06) 03/21/18 16:15 C-Reactive Protein 13.90 mg/dL (0.0-0.3) H 03/22/18 06:33 Total Protein 7.1 g/dL (6.4-8.2) 03/21/18 16:15 Albumin 3.0 g/dL (3.4-5.0) L 03/21/18 16:15 Urine Color Yellow (Yellow) 03/21/18 19:04 Urine Clarity Cloudy 03/21/18 19:04 Urine pH 5.5 (5-8) 03/21/18 19:04 Ur Specific Clothier 1.025 (1.005-1.025) 03/21/18 19:04 Urine Protein >=300 mg/dL (Negative) H 03/21/18 19:04 Urine Ketones 15 mg/dL (Negative) H 03/21/18 19:04 Urine Blood Moderate (Negative) H 03/21/18 19:04 Urine Nitrite Negative (Negative) 03/21/18 19:04 Urine Bilirubin Large (Negative) H 03/21/18 19:04 Urine Urobilinogen 2.0 EU/dL (Up TO 0.2) H 03/21/18 19:04 Ur Leukocyte Esterase Negative (Negative) 03/21/18 19:04 Urine RBC >50 (0-2) H 03/21/18 19:04 Urine WBC Negative HPF (0-5) 03/21/18 19:04 Ur Epithelial Cells Moderate HPF (Negative) 03/21/18 19:04 Urine Crystals Negative HPF (Negative) 03/21/18 19:04 Urine Bacteria Moderate HPF (Negative) 03/21/18 19:04 Urine Casts 3-5 fine granular LPF (Negative) 03/21/18 19:04 Urine Mucus Moderate (Negative) 03/21/18 19:04 Urine Other Negative (Negative) 03/21/18 19:04 Ur Culture Indicated? No/sq. contamination 03/21/18 19:04 Urine Glucose Negative mg/dL (Negative) 03/21/18 19:04 Urine Opiates Screen Negative (Negative) 03/22/18 10:10 Urine Methadone Screen Negative (Negative) 03/22/18 10:10 Ur Barbiturates Screen Negative (Negative) 03/22/18 10:10 Ur Tricyclics Screen Negative (Negative) 03/22/18 10:10 Ur Amphetamines Screen Negative (Negative) 03/22/18 10:10 U Benzodiazepines Scrn Negative (Negative) 03/22/18 10:10 Urine Cocaine Screen Positive (Negative) 03/22/18 10:10 Ur THC Screen Negative (Negative) 03/22/18 10:10 CT chest/abdomen/pelvis: Findings consistent with bilateral pleural effusions, pulmonary infiltrates and hilar and mediastinal adenopathy. These findings could certainly be on the basis of an acute pneumonitis and a concomitant malignancy. Additional information would be of value in the further imaging of this patient. A small quantity of ascitic fluid is demonstrated with puddling in the pelvis on this examination. There are findings involving the pancreas and peripancreatic tissues, raising the possibility of acute pancreatitis. Also, there is a dilated gallbladder and a considerable quantity of pericholecystic fluid. Increased absorption in the mesenteric fat and increased absorption in the subcutaneous fat is identified in this patient, the findings suggesting anasarca.
[2018-03-22] MEDS: diphenhydrAMINE 25 MG CAP 50 MG PO (22:29)
[2018-03-22] MEDS: Albuterol 2.5 MG/3 ML INH SOLN VIAL UPD (23:46)
[2018-03-23] VITALS (132 sets, daily range): BP systolic 30–150; BP diastolic 17–103; PULSE 88–121; RESP 2–51; TEMP 36.3–37.4; O2SAT 88–99
[2018-03-23] MEDS: Albuterol 2.5 MG/3 ML INH SOLN VIAL UPD (00:38)
--- NOTE | 2018-03-23 01:18 | DI.RAD_ITS ---
SYMPTOM/DIAGNOSIS: DYSPNEA PORTABLE UPRIGHT AP CHEST: Bilateral pulmonary infiltrates are demonstrated. There is prominence of the upper lobe vasculature. The heart is within normal limits in size. The findings would be most consistent with pulmonary edema.
[2018-03-23 02:02] LABS: TCO2 (Venous) 14 mmol/L (22-29); pCO2 (Venous) 23 mm/Hg (34-47); pH (Venous) 7.38 (7.32-7.43); pO2 (Venous) 41 mm/Hg (28-44)
[2018-03-23] MEDS: Furosemide 20 MG/2 ML VIAL IVP ×3 (02:02→22:03)
[2018-03-23 02:03] LABS: HCO3 (Venous) 14 mmol/L (22-28); O2 Sat (Venous) 76 % (70-80)
[2018-03-23] MEDS: Albuterol/Ipratropium 3 ML UPD VIAL UPD ×4 (02:03→19:12)
[2018-03-23] MEDS: Hydrocortisone SOD SUC. 100 MG VIAL 50 MG IVP ×4 (02:03→19:10)
--- NOTE | 2018-03-23 02:11 | DI.VRAD_ITS ---
EXAM: XR Chest, 1 View EXAM DATE/TIME: 03/23/2018 1:19 AM CLINICAL HISTORY: 53 years old, female; Signs and symptoms; Dyspnea TECHNIQUE: XR of the chest, 1 view. COMPARISON: SC XR PORTABLE CHEST AP 03/21/2018 5:38 PM FINDINGS: Lungs: There is increased consolidation of the lungs seen diffusely with central predominance. Pleural space: Unremarkable. No pleural effusion. No pneumothorax. Heart/Mediastinum: Unremarkable. No cardiomegaly. Bones/joints: Chronic osseous changes. IMPRESSION: Increased diffuse consolidation with central predominance that may be indicative of pulmonary edema. Dictated and Authenticated by: Uvaldo Arevalo MD. Ordering:[facility] Gifty Reveles MD
[2018-03-23 02:21] LABS: NT-proBNP 5519 pg/mL
[2018-03-23] MEDS: CEFEPIME 2 GM in Normal Saline 100 ML IVPB ×2 (04:53→17:03)
[2018-03-23] MEDS: Normal Saline 1,000 ML 30 ML IV (07:00)
[2018-03-23 07:24] LABS: Abs Immature Grans 0.19 k/cumm (0.0-0.09); HCT 33.3 % (36.0-46.0); HGB 11.4 g/dL (12.0-15.5); Mean Corp. HGB Concentration 34.2 g/dL (32.0-36.0); Mean Corpuscular Hemoglobin 30.2 pg (27.0-33.0); Mean Corpuscular Volume 88.1 fL (80-95); Mean Platelet Volume 12.6 fL (8.0-11.0); RBC 3.78 m/cumm (4.00-5.20); RBC Distribution Width 13.8 % (11.7-14.6); White Blood Cell Count 18.02 k/cumm (4.4-10.8)
[2018-03-23 07:46] LABS: ALT 171 U/L (12-78); AST 136 U/L (15-37); Albumin 2.1 g/dL (3.4-5.0); Alkaline Phosphatase 91 U/L (46-116); Anion Gap 11.8 mmol/L (3-11); BUN 20 mg/dL (7-18); Bilirubin, Direct 1.69 mg/dL (0.00-0.20); Bilirubin, Total 2.4 mg/dL (0.2-1.0); C-Reactive Protein 15.23 mg/dL (0.0-0.3); CO2 21.2 mmol/L (21.0-32.0); CREATININE 1.11 mg/dL (0.55-1.02); Calcium 7.3 mg/dL (8.5-10.1); Chloride 108 mmol/L (98-107); Creatine Kinase 45 U/L (26-192); Estimated GFR 51.22 (mL/min/1.73m2); Glucose 233 mg/dL (70-100); Sodium 141 mmol/L (136-145); TSH (W/Ref FT4) 0.32 uIU/mL (0.358-3.74); Total Protein 5.6 g/dL (6.4-8.2)
[2018-03-23 07:50] LABS: Potassium 2.3 mmol/L (3.5-5.1)
[2018-03-23 07:52] LABS: Platelet Count 56 x1000/uL (130-400)
[2018-03-23 07:53] LABS: Absolute Lymphocyte Count 0.36 k/cumm (1.2-3.4); Absolute Monocyte Count 0.36 k/cumm (0.11-0.7); Absolute Neutrophil Count 17.12 k/cumm (1.2-6.7); Diff Comment Manual Differential; Polychromasia Present
--- NOTE | 2018-03-23 08:00 | DI.US_ITS ---
SYMPTOM/DIAGNOSIS: GNE SEPSIS, ABNL LFT'S, ? CHOLECYSTITIS ABDOMEN ULTRASOUND: The proximal and mid aorta appear normal. The distal segment was not visualized. The inferior vena cava is mildly dilated at 2.5 cm. The distal segment of the IVC was not seen. The liver is normal. There is cholelithiasis with a 2.1 cm. stone. The gallbladder wall is 6 mm. thick and there is a positive Porter's sign. The common duct caliber is 4 mm. The pancreas was obscured. Note is made of mild splenomegaly and a 1.1 by 0.9, ovoid, echogenic lesion within the inferior border of the spleen is noted. Note is made of ascitic fluid along the liver margin medially. The kidneys are unremarkable. The right kidney measures 12.4 by 6.5 by 4.4 cm. The left kidney measures 12.8 by 5.2 by 4.9 cm. SUMMARY: There is evidence of cholelithiasis. There is gallbladder wall thickening and a positive Porter's sign was elicited at the time of this examination. Also note is made of ascitic fluid in the abdomen and in addition there is an apparent small left pleural effusion. Please see the above discussion.
[2018-03-23 08:08] LABS: FREE T4 1.44 ng/dL (0.76-1.46)
[2018-03-23] MEDS: Pantoprazole 40 MG VIAL IVP (09:01)
--- NOTE | 2018-03-23 09:12 | PDOC.CMPRO ---
Care Management Progress Note S/O: Adi was speaking on the phone when CM attempted to meet with her; CM will continue to attempt to connect with Adi. A: 53 year admitted to [facility] 03/21/18 for Sepsis P: CM will continue to follow and assess Adi when she is able to engage. Anticipate Adi will remain in ICU and continue to be treated with IVF and IV ABX.
--- NOTE | 2018-03-23 10:42 | DI.RAD_ITS ---
SYMPTOMS/DIAGNOSIS: CHF, + PNEUMONIA, FOLLOW UP PORTABLE AP SEMIERECT CHEST: When compared with the prior study of the same day at 1:47 a.m. and allowing for differences in technique, there appears to be some overall mild clearing of the lungs. The left hemidiaphragm is poorly defined and I could not entirely exclude a small area of infiltration or atelectasis or a small left pleural effusion. The heart is unchanged in size.
[2018-03-23] MEDS: Potassium Chloride 20 MEQ TABCR 40 MEQ PO ×2 (10:45→22:03)
[2018-03-23] MEDS: POTASSIUM CHLORIDE 20 MEQ/100 ML BAG 50 MEQ IVPB ×2 (10:45→12:38)
[2018-03-23 11:25] LABS: FIO2 21 %; FIO2L Room Air L; HCO3 19 mmol/L (22-28); Site Right Radial; pCO2 22 mmHg (34-47); pH 7.52 (7.35-7.45); pO2 57 mmHg (83-108); sO2 93 % (94-98); tCO2 19 mmol/L (22-29)
[2018-03-23 11:37] LABS: Bilirubin Negative (Negative); Blood Large (Negative); Clarity Sl Cloudy; Glucose Negative (Negative); Ketones Negative (Negative); Leukocyte Esterase Negative (Negative); Nitrite Negative (Negative); Specific Gravity 1.015 (1.005-1.025); Urobilinogen 0.2 EU/dL (Up TO 0.2); pH 5.5 (5-8)
[2018-03-23 11:52] LABS: Epithelial Cells Negative HPF (Negative); RBC >50 (0-2); WBC 20-50 HPF (0-5)
[2018-03-23 11:53] LABS: Bacteria Moderate HPF (Negative); Crystals Moderate Amorphous HPF (Negative); Mucus Trace (Negative); Other Cells Few Renal (Negative)
[2018-03-23 11:54] LABS: C & S Indicated? Yes
[2018-03-23] MEDS: Ondansetron 4 MG/2 ML VIAL IVP (13:21)
[2018-03-23] MEDS: Potassium Chloride 10 MEQ CAPCR 40 MEQ PO ×2 (14:01→19:11)
[2018-03-23] MEDS: Normal Saline Flush 10 ML SYR IVP ×3 (14:06→22:03)
--- NOTE | 2018-03-23 14:29 | CMPROGNOTE_ITS ---
Care Management Progress Note S/O: Adi was speaking on the phone when CM attempted to meet with her; CM will continue to attempt to connect with Adi. A: 53 year admitted to [facility] 03/21/18 for Sepsis P: CM will continue to follow and assess Adi when she is able to engage. Anticipate Adi will remain in ICU and continue to be treated with IVF and IV ABX.
--- NOTE | 2018-03-23 18:17 | PGE_ITS ---
Date of Service Date of service: 03/23/18 Time of Service: 12:10 Assessment and Plan (1) Gram negative sepsis: Current visit: Yes Status: Acute Blood cx positive for GNR, speciation pending; repeat done this morning Echo with mild to modrate tricuspid regurgitation; no valvular pathology named per se (TTE). Continue empiric vanco/cefepime, awaiting speciation/sensitivities. (2) Acute cholecystitis: Current visit: Yes Status: Suspected Consult surgery (3) Community acquired pneumonia: Current visit: Yes Status: Acute Obtain sputum culture. Continue empiric vancomycin/cefepime. (4) Acute respiratory alkalosis: Current visit: Yes Status: Acute In setting of hypoxemia, picture of what looks like diffuse pulmonary infiltrates/alveolar edema, and PaO2/FiO2 ratio of 271 - it is plausible that the patient is developing ARDS. However, a PE also needs to be ruled out. CTA chest ordered, pending. CHF would not classically result in this ABG. (5) Hypoxemia: Current visit: Yes Status: Acute As above (6) Septic shock: Current visit: Yes Status: Resolved Resolved. Unable to tolerate any more IVF and off pressors. (7) Thrombocytopenia: Current visit: No Status: Chronic Acute on chronic, partially due to hepatitis C in addition to sepsis. Abstain from chemical DVT ppx. Monitor CBC. (8) Hepatitis C: Current visit: No Status: Chronic Follow up as outpatient. (9) IV drug abuse: Current visit: Yes Status: Chronic Monitor for withdrawal. HIV pending (10) GERD (gastroesophageal reflux disease): Current visit: Yes Status: Chronic IV PPI (11) Discharge planning issues: Current visit: Yes Status: Acute Full Code (12) DVT prophylaxis: Current visit: Yes Status: Acute SCD's + TEDs Subjective Interval history since last seen: Overnight, felt very short of breath. CXR was consistent with fluid overload; patient was diuresed with some improvement of her symptoms. She denies dizziness, chest pain, nausea, vomiting. She endorses a cough productive of green/brown sputum. Exam Narrative Exam Narrative: General: Middle aged female, laying in bed, tachypneic, HEENT: EOMI, MMM Heart: RRR, tachycardic Lungs: quiet rales B GI: abdomen soft, nontender, nondistended Extremities: Ecchymosis R elbow; Hyperpigmentation BLE's/feet, +1 BLE edema, no clubbing or cyanosis Objective Objective Clinical Data: Abnormal lab results 03/23/18 03/23/18 03/23/18 Range/Units 01:48 01:48 07:00 WBC (4.4-10.8) k/cumm RBC (4.00-5.20) m/cumm Hgb (12.0-15.5) g/dL Hct (36.0-46.0) % Plt Count (130-400) x1000/uL MPV (8.0-11.0) fL Absolute Neutrophils (1.2-6.7) k/cumm Absolute Lymphocytes (1.2-3.4) k/cumm pCO2 (34-47) mmHg pO2 (83-108) mmHg O2 Saturation (94-98) % ABG pH (7.35-7.45) ABG HCO3 (22-28) mmol/L ABG Total CO2 (22-29) mmol/L ABG Base Excess (-3-3) mmol/L VBG pCO2 23 L (34-47) mm/Hg VBG HCO3 14 L (22-28) mmol/L VBG Total CO2 14 L (22-29) mmol/L VBG Base Excess -11.0 L (-3-3) mmol/L Potassium 2.3 L* D (3.5-5.1) mmol/L Chloride 108 H (98-107) mmol/L Anion Gap 11.8 H (3-11) mmol/L BUN 20 H D (7-18) mg/dL Creatinine 1.11 H (0.55-1.02) mg/dL Glucose 233 H D (70-100) mg/dL Calcium 7.3 L (8.5-10.1) mg/dL Total Bilirubin 2.4 H (0.2-1.0) mg/dL Conjugated Bilirubin 1.69 H (0.00-0.20) mg/dL AST 136 H (15-37) U/L ALT 171 H (12-78) U/L C-Reactive Protein 15.23 H (0.0-0.3) mg/dL NT-Pro-B Natriuret Pep 5519 H ( - 299) pg/mL Total Protein 5.6 L (6.4-8.2) g/dL Albumin 2.1 L (3.4-5.0) g/dL TSH 0.32 L (0.358-3.74) uIU/mL Urine Protein (Negative) mg/dL Urine Blood (Negative) Urine RBC (0-2) 03/23/18 03/23/18 03/23/18 Range/Units 07:00 11:05 11:15 WBC 18.02 H D (4.4-10.8) k/cumm RBC 3.78 L (4.00-5.20) m/cumm Hgb 11.4 L (12.0-15.5) g/dL Hct 33.3 L (36.0-46.0) % Plt Count 56 L (130-400) x1000/uL MPV 12.6 H (8.0-11.0) fL Absolute Neutrophils 17.12 H (1.2-6.7) k/cumm Absolute Lymphocytes 0.36 L (1.2-3.4) k/cumm pCO2 22 L (34-47) mmHg pO2 57 L (83-108) mmHg O2 Saturation 93 L (94-98) % ABG pH 7.52 H (7.35-7.45) ABG HCO3 19 L (22-28) mmol/L ABG Total CO2 19 L (22-29) mmol/L ABG Base Excess -4.0 L (-3-3) mmol/L VBG pCO2 (34-47) mm/Hg VBG HCO3 (22-28) mmol/L VBG Total CO2 (22-29) mmol/L VBG Base Excess (-3-3) mmol/L Potassium (3.5-5.1) mmol/L Chloride (98-107) mmol/L Anion Gap (3-11) mmol/L BUN (7-18) mg/dL Creatinine (0.55-1.02) mg/dL Glucose (70-100) mg/dL Calcium (8.5-10.1) mg/dL Total Bilirubin (0.2-1.0) mg/dL Conjugated Bilirubin (0.00-0.20) mg/dL AST (15-37) U/L ALT (12-78) U/L C-Reactive Protein (0.0-0.3) mg/dL NT-Pro-B Natriuret Pep ( - 299) pg/mL Total Protein (6.4-8.2) g/dL Albumin (3.4-5.0) g/dL TSH (0.358-3.74) uIU/mL Urine Protein Trace H (Negative) mg/dL Urine Blood Large H (Negative) Urine RBC >50 H (0-2) Vital Signs Temperature 37.4 C 03/23/18 16:14 Temperature Source Temporal Artery Scan 03/23/18 16:14 Pulse 99 H 03/23/18 17:01 Pulse 105 H 03/23/18 17:20 Respiratory Rate 37 H 03/23/18 17:33 Respiratory Effort 03/23/18 16:14 Respiratory Depth Shallow 03/23/18 16:14 Respiratory Pattern Tachypnea 03/23/18 16:14 Blood Pressure 97/72 L 03/23/18 17:33 Blood Pressure Mean 78 03/23/18 17:01 Blood Pressure Position Right Lateral 03/23/18 12:57 Pulse Oximetry 92 L 03/23/18 17:33 Oxygen Delivery Method Nasal Cannula 03/23/18 17:33 Oxygen Flow Rate 2 03/23/18 17:33 Pain Level 0 03/23/18 16:14 Intake & Output 03/22/18 03/23/18 03/23/18 23:59 11:59 23:59 Intake Total 3121 / 5660.848 1760 / 2054.167 294.167 / 2053.167 Output Total 1100 / 2375 6750 / 9750 3000 / 9750 Balance 2020 / 3284.848 -4990 / -7695.833 -2705.833 / -7695.833 Weight 72.1 kg Intake: IV 2521 / 4860.848 300 / 594.167 294.167 / 594.167 Oral 600 / 800 1460 / 1460 Output: Urine 1100 / 2375 6750 / 9750 3000 / 9750 Other: Urine Color Dark Gemma Yellow Yellow Urine Appearance Cloudy Clear Clear Comment stephen to gravity with concentrated yellow urine in it stephen to gravity and producing large amounts of clear looking yellow urine Stool Occult Blood Negative Negative Stool Size Small Smear Stool Characteristics Soft Liquid Voiding Methods Bedpan Laboratory Results WBC 18.02 k/cumm (4.4-10.8) H D 03/23/18 07:00 RBC 3.78 m/cumm (4.00-5.20) L 03/23/18 07:00 Hgb 11.4 g/dL (12.0-15.5) L 03/23/18 07:00 Hct 33.3 % (36.0-46.0) L 03/23/18 07:00 MCV 88.1 fL (80-95) 03/23/18 07:00 MCH 30.2 pg (27.0-33.0) 03/23/18 07:00 MCHC 34.2 g/dL (32.0-36.0) 03/23/18 07:00 RDW 13.8 % (11.7-14.6) 03/23/18 07:00 Plt Count 56 x1000/uL (130-400) L 03/23/18 07:00 MPV 12.6 fL (8.0-11.0) H 03/23/18 07:00 Immature Gran % See Differential 03/23/18 07:00 Neutrophils % 71.0 03/23/18 07:00 Band Neutrophils % 24.0 % 03/23/18 07:00 Lymphocytes % 2.0 03/23/18 07:00 Atypical Lymphs % 0 03/21/18 16:15 Monocytes % 2.0 03/23/18 07:00 Eosinophils % 0.0 03/23/18 07:00 Basophils % 0.0 03/23/18 07:00 Absolute Neutrophils 17.12 k/cumm (1.2-6.7) H 03/23/18 07:00 Absolute Lymphocytes 0.36 k/cumm (1.2-3.4) L 03/23/18 07:00 Absolute Monocytes 0.36 k/cumm (0.11-0.7) 03/23/18 07:00 Absolute Eosinophils 0.00 k/cumm (0.0-0.7) 03/23/18 07:00 Absolute Basophils 0.00 k/cumm (0.0-0.2) 03/23/18 07:00 Metamyelocytes 1.0 % 03/23/18 07:00 Differential Comment Manual differential 03/23/18 07:00 RBC Morphology See below 03/23/18 07:00 Polychromasia Present 03/23/18 07:00 Tear Drop Cells 2+ 03/21/18 16:15 ESR 14 MM/HR (0-30) 03/21/18 16:15 PT 15.7 sec (9.3-11.0) H 03/22/18 06:33 INR 1.6 (0.9-1.1) H 03/22/18 06:33 Sample Site Right radial 03/23/18 11:15 pCO2 22 mmHg (34-47) L 03/23/18 11:15 pO2 57 mmHg (83-108) L 03/23/18 11:15 O2 Saturation 93 % (94-98) L 03/23/18 11:15 ABG pH 7.52 (7.35-7.45) H 03/23/18 11:15 ABG HCO3 19 mmol/L (22-28) L 03/23/18 11:15 ABG Total CO2 19 mmol/L (22-29) L 03/23/18 11:15 ABG Base Excess -4.0 mmol/L (-3-3) L 03/23/18 11:15 VBG pH 7.38 (7.32-7.43) 03/23/18 01:48 VBG pCO2 23 mm/Hg (34-47) L 03/23/18 01:48 VBG pO2 41 mm/Hg (28-44) 03/23/18 01:48 VBG HCO3 14 mmol/L (22-28) L 03/23/18 01:48 VBG Total CO2 14 mmol/L (22-29) L 03/23/18 01:48 VBG O2 Saturation 76 % (70-80) 03/23/18 01:48 VBG Base Excess -11.0 mmol/L (-3-3) L 03/23/18 01:48 Oxygen Liter Flow Room air L 03/23/18 11:15 FiO2 21 % 03/23/18 11:15 Sodium 141 mmol/L (136-145) 03/23/18 07:00 Potassium 2.3 mmol/L (3.5-5.1) L* D 03/23/18 07:00 Chloride 108 mmol/L (98-107) H 03/23/18 07:00 Carbon Dioxide 21.2 mmol/L (21.0-32.0) 03/23/18 07:00 Anion Gap 11.8 mmol/L (3-11) H 03/23/18 07:00 BUN 20 mg/dL (7-18) H D 03/23/18 07:00 Creatinine 1.11 mg/dL (0.55-1.02) H 03/23/18 07:00 Estimated GFR/1.73 m2 51.22 (mL/min/1.73m2) 03/23/18 07:00 Glucose 233 mg/dL (70-100) H D 03/23/18 07:00 Lactate 1.3 mmol/L (0.6-1.4) 03/22/18 14:30 Calcium 7.3 mg/dL (8.5-10.1) L 03/23/18 07:00 Magnesium 2.0 mg/dL (1.8-2.4) 03/23/18 07:00 Total Bilirubin 2.4 mg/dL (0.2-1.0) H 03/23/18 07:00 Conjugated Bilirubin 1.69 mg/dL (0.00-0.20) H 03/23/18 07:00 AST 136 U/L (15-37) H 03/23/18 07:00 ALT 171 U/L (12-78) H 03/23/18 07:00 Alkaline Phosphatase 91 U/L (46-116) 03/23/18 07:00 Creatine Kinase 45 U/L (26-192) 03/23/18 07:00 Troponin I < 0.02 ng/mL (0.00-0.06) 03/21/18 16:15 C-Reactive Protein 15.23 mg/dL (0.0-0.3) H 03/23/18 07:00 NT-Pro-B Natriuret Pep 5519 pg/mL (-299) H 03/23/18 01:48 Total Protein 5.6 g/dL (6.4-8.2) L 03/23/18 07:00 Albumin 2.1 g/dL (3.4-5.0) L 03/23/18 07:00 TSH 0.32 uIU/mL (0.358-3.74) L 03/23/18 07:00 Free T4 1.44 ng/dL (0.76-1.46) 03/23/18 07:00 Urine Color Yellow (Yellow) 03/23/18 11:05 Urine Clarity Sl cloudy 03/23/18 11:05 Urine pH 5.5 (5-8) 03/23/18 11:05 Ur Specific [place] 1.015 (1.005-1.025) 03/23/18 11:05 Urine Protein Trace mg/dL (Negative) H 03/23/18 11:05 Urine Ketones Negative mg/dL (Negative) 03/23/18 11:05 Urine Blood Large (Negative) H 03/23/18 11:05 Urine Nitrite Negative (Negative) 03/23/18 11:05 Urine Bilirubin Negative (Negative) 03/23/18 11:05 Urine Urobilinogen 0.2 EU/dL (Up TO 0.2) 03/23/18 11:05 Ur Leukocyte Esterase Negative (Negative) 03/23/18 11:05 Urine RBC >50 (0-2) H 03/23/18 11:05 Urine WBC 20-50 HPF (0-5) 03/23/18 11:05 Ur Epithelial Cells Negative HPF (Negative) 03/23/18 11:05 Urine Crystals Moderate amorphous HPF (Negative) 03/23/18 11:05 Urine Bacteria Moderate HPF (Negative) 03/23/18 11:05 Urine Casts Comment LPF (Negative) 03/23/18 11:05 Urine Mucus Trace (Negative) 03/23/18 11:05 Urine Other Few renal (Negative) 03/23/18 11:05 Ur Culture Indicated? Yes 03/23/18 11:05 Urine Glucose Negative mg/dL (Negative) 03/23/18 11:05 Vancomycin Trough Cancelled 03/23/18 19:29 Urine Opiates Screen Negative (Negative) 03/22/18 10:10 Urine Methadone Screen Negative (Negative) 03/22/18 10:10 Ur Barbiturates Screen Negative (Negative) 03/22/18 10:10 Ur Tricyclics Screen Negative (Negative) 03/22/18 10:10 Ur Amphetamines Screen Negative (Negative) 03/22/18 10:10 U Benzodiazepines Scrn Negative (Negative) 03/22/18 10:10 Urine Cocaine Screen Positive (Negative) 03/22/18 10:10 Ur THC Screen Negative (Negative) 03/22/18 10:10 CXR: When compared with the prior study of the same day at 1:47 a.m. and allowing for differences in technique, there appears to be some overall mild clearing of the lungs. The left hemidiaphragm is poorly defined and I could not entirely exclude a small area of infiltration or atelectasis or a small left pleural effusion. The heart is unchanged in size.
--- NOTE | 2018-03-23 18:46 | DI.CT_ITS ---
SYMPTOMS/DIAGNOSIS: TACHYPNEA, RESPIRATORY ALKALOSIS, HYPOXIA, ? PE PE CHEST CT: CT angiography was performed with multi slice acquisition and multi planar and 3D reconstruction. CT scan of the chest was performed according to the pulmonary embolus protocol. There is no evidence of a pulmonary embolism. The thoracic aorta is of normal caliber. No aneurysmal dilatation or dissection is seen. The heart is within normal limits in size. No significant pericardial effusion is seen. No findings to suggest right ventricular dysfunction are present. There are enlarged lymph nodes seen in the mediastinum. The largest measures 1.4 cm at its short axis diameter. There are bilateral moderate size pleural effusions. No pneumothorax is identified. There are subjacent infiltrates in the lung bases which may represent atelectasis or pneumonia. There is a focal area of consolidation in the left lingula. There are also symmetric air space opacities present in the lungs. The tracheobronchial tree is unremarkable. The bones are intact. IMPRESSION: 1. No evidence of a pulmonary embolus, thoracic aortic dissection or aneurysm. 2. Moderate bilateral pleural effusions. 3. Bilateral airspace opacities. Primary diagnostic concern is for pulmonary edema but a multifocal pneumonia can not excluded. 4. Thoracic adenopathy. This may be reactive.
[2018-03-23] MEDS: Omnipaque 350 MG/ML 100 ML BTL IJ (18:48)
[2018-03-23] MEDS: Nicotine 14 MG/24 HR PATCH TD (19:12)
--- NOTE | 2018-03-23 19:41 | DI.VRAD_ITS ---
EXAM: CT Angiography Chest With Contrast EXAM DATE/TIME: 03/23/2018 3:17 PM CLINICAL HISTORY: 53 years old, female; Signs and symptoms; Other: Hypoxia, tachypnea, respiratory alkalosis TECHNIQUE: Axial computed tomographic angiography images of the chest with intravenous contrast using CT angiography protocol. Coronal and sagittal reformatted images were created and reviewed. MIP reconstructed images were created and reviewed. COMPARISON: CR XR PORTABLE CHEST AP 03/23/2018 10:39 AM FINDINGS: Pulmonary arteries: No pulmonary embolism identified. Aorta: No thoracic aortic aneurysm or dissection. Thyroid: Thyroid gland partially excluded from view but unremarkable, as seen. Lungs: Lung horner partially obscured by extensive artifact from breathing motion. Dependent atelectasis at both lung bases. Extensive patchy bilateral airspace disease, symmetrically distributed throughout both lungs. Pulmonary edema? Multifocal pneumonia? Clinical correlation recommended. Pleural space: Moderate-sized bilateral pleural effusions. No pneumothorax. Heart: Overall normal sized heart. Lymph nodes: Mildly enlarged mediastinal and hilar lymph nodes, nonspecific. Bones/joints: Lower ribs partially excluded from view and incompletely evaluated. Otherwise, no acute fracture seen among the bones of the chest. Soft tissues: Unremarkable. IMPRESSION: 1. Moderate-sized bilateral pleural effusions. 2. Extensive bilateral airspace disease, somewhat symmetric distributed. Pulmonary edema is favored given pleural effusions and symmetric distribution although multifocal pneumonia could also have this appearance. Clinical correlation is recommended. 3. Mildly enlarged mediastinal and hilar lymph nodes, probably reactive given the appearance of the lungs. Dictated and Authenticated by: Wing Duarte MD. Ordering:BRADEN Faustin MD
[2018-03-23] MEDS: LORazepam 0.5 MG TAB PO (20:51)
[2018-03-23] MEDS: LORazepam 1 MG TAB PO (21:53)
[2018-03-23] MEDS: LEVOFLOXACIN 750 MG/150 ML BAG 100 MG IVPB (22:29)
[2018-03-24] VITALS (42 sets, daily range): BP systolic 119–172; BP diastolic 78–104; PULSE 102–118; RESP 1–56; TEMP 31–37.2; O2SAT 87–97
[2018-03-24] MEDS: Albuterol/Ipratropium 3 ML UPD VIAL UPD ×2 (01:50→13:06)
[2018-03-24] MEDS: LORazepam 1 MG TAB PO ×2 (01:51→05:45)
[2018-03-24] MEDS: Hydrocortisone SOD SUC. 100 MG VIAL 50 MG IVP ×2 (01:52→08:45)
[2018-03-24] MEDS: CEFEPIME 2 GM in Normal Saline 100 ML IVPB ×2 (04:44→16:13)
[2018-03-24] MEDS: Normal Saline Flush 10 ML SYR IVP ×2 (04:51→08:48)
--- NOTE | 2018-03-24 06:53 | W.SURGCON ---
Date of service: 03/24/18 Time of Service: 06:54 Assessment and Plan (1) Bacteremia: Start date: 03/24/18 Start time: 12:37 Current visit: Yes Status: Acute Would continue broad-spectrum antibiotics once the bacteria is speciated would narrow to the sensitivities patient will need repeat blood cultures to assure that she is clear of the gram-negative bacteria (2) Gram negative sepsis: Start date: 03/24/18 Start time: 12:37 Current visit: Yes Status: Acute Continue antibiotics (3) Hypoxemia: Start date: 03/24/18 Start time: 12:38 Current visit: Yes Status: Acute Patient is showing signs of acute respiratory insufficiency with tachypnea into the 50s currently concerned that her saturations are low as well would recommend supplemental oxygen and possible intubation if patient's respiratory status deteriorates anymore her we are work of breathing is high as well as her blood glass shows that she has a CO2 of 20 and a bicarb of 19. (4) Acute respiratory insufficiency: Start date: 03/24/18 Start time: 12:38 Current visit: Yes Status: Acute Consider intubate Repeat ABG Continue supplemental oxygen Patient has an overall alkalosis secondary to her tachypnea and her CO2 of 20 which is uncompensated despite her bicarb being 13 and then we done at 19 (5) Hypokalemia: Current visit: Yes Status: Acute Corrector K secondary to her metabolic acidosis (6) IV drug abuse: Current visit: Yes Status: Chronic (7) Hepatic insufficiency: Start date: 03/24/18 Start time: 12:39 Current visit: Yes Status: Acute meld 15 Patient has an acute on chronic liver dysfunction with hepatitis C and global abdominal ascites all consistent with her chronic nature the infection leading to her sepsis could also have caused a element of acute shock liver making her condition worse As stated above patient's meld was calculated to be 15 and is very high in serious for her condition. Patient is in multiorgan failure with cardiac respiratory and liver dysfunction would consider a tertiary center for her care due to her acute deterioration and severe condition Patient also has a coagulopathy with an albumin of 2.1 consistant with severe malnutrition, most likely secondary to her liver dysfunction (8) Ascites: Start date: 03/24/18 Start time: 12:42 Current visit: Yes Status: Acute Her CAT scan shows significant bilateral pleural effusion as well as intra-abdominal ascites with some mentioned pericholecystic fluid. Patient has a normal wall gallbladder with no stones seen her etiology of the ascites and pleural effusion could be secondary to her chronic liver insufficiency and shock liver status secondary to her septic shock I do not believe based on the exam as well as her laboratory values that her gallbladder is part of her current problem. On physical exam she had no abdominal pain to speak of and the lab values that are elevated and her overall deficiencies most likely are due to her liver insufficiency If there was any question that the gallbladder was a source of her gram-negative bacteremia patient is a poor surgical candidate and would recommend percutaneous cholecystostomy tube to be placed by interventional radiology The most likely source of her gram-negative bacteremia were secondary to her IVDA use History of Present Illness Chief Complaint: Came in with sepsis, admitted IVDA Review of Systems Constitutional Reports as per HPI Cardiovascular Reports rapid heart rate Gastrointestinal Reports bloating PFSH Medical History Hypokalemia (Acute) Acute respiratory insufficiency (Acute) Bacteremia (Acute) Hypoxemia (Acute) IV drug abuse (Chronic) Gram negative sepsis (Acute) Alcohol abuse Chronic ulcer of leg with fat layer exposed Depression Dysfunctional uterine bleeding GERD (gastroesophageal reflux disease) Hep C w/o coma, chronic Hypercholesterolemia IV drug abuse Surgical History section Colonoscopy - MAC EGD - MAC Social History Smoking/Tobacco Use Status: Current every day Exam Const General: cooperative and acute distress Nutritional Appearance: average body habitus Orientation: alert, awake and oriented x3 Resp Effort & Inspection: abnormal respiratory pattern and tachypneic Auscultation: crackles GI Inspection: normal to inspection and distended Percussion: normal to percussion Auscultation: normal bowel sounds Results Last Vital Signs Temp 37.2 C 03/24/18 03:45 Pulse 110 H 03/24/18 05:52 Resp 56 H 03/24/18 06:00 BP 138/87 03/24/18 05:52 Pulse Ox 91 L 03/24/18 06:00 Labs : 03/24/18 09:00 03/24/18 09:00 Laboratory Results - last 24 hr 03/23/18 03/23/18 03/23/18 07:00 07:00 11:05 WBC 18.02 H D RBC 3.78 L Hgb 11.4 L Hct 33.3 L MCV 88.1 MCH 30.2 MCHC 34.2 RDW 13.8 Plt Count 56 L MPV 12.6 H Immature Gran % See Differential Neutrophils % 71.0 Band Neutrophils % 24.0 Lymphocytes % 2.0 Monocytes % 2.0 Eosinophils % 0.0 Basophils % 0.0 Absolute Neutrophils 17.12 H Absolute Lymphocytes 0.36 L Absolute Monocytes 0.36 Absolute Eosinophils 0.00 Absolute Basophils 0.00 Metamyelocytes 1.0 Differential Comment Manual differential RBC Morphology See below Polychromasia Present Sample Site pCO2 pO2 O2 Saturation ABG pH ABG HCO3 ABG Total CO2 ABG Base Excess Oxygen Liter Flow FiO2 Sodium 141 Potassium 2.3 L* D Chloride 108 H Carbon Dioxide 21.2 Anion Gap 11.8 H BUN 20 H D Creatinine 1.11 H Estimated GFR/1.73 m2 51.22 Glucose 233 H D Calcium 7.3 L Magnesium 2.0 Total Bilirubin 2.4 H Conjugated Bilirubin 1.69 H AST 136 H ALT 171 H Alkaline Phosphatase 91 Creatine Kinase 45 C-Reactive Protein 15.23 H Total Protein 5.6 L Albumin 2.1 L TSH 0.32 L Free T4 1.44 Urine Color Yellow Urine Clarity Sl cloudy Urine pH 5.5 Ur Specific [place] 1.015 Urine Protein Trace H Urine Ketones Negative Urine Blood Large H Urine Nitrite Negative Urine Bilirubin Negative Urine Urobilinogen 0.2 Ur Leukocyte Esterase Negative Urine RBC >50 H Urine WBC 20-50 Ur Epithelial Cells Negative Urine Crystals Moderate amorphous Urine Bacteria Moderate Urine Casts Comment Urine Mucus Trace Urine Other Few renal Ur Culture Indicated? Yes Urine Glucose Negative Vancomycin Trough 03/23/18 03/23/18 11:15 19:29 WBC RBC Hgb Hct MCV MCH MCHC RDW Plt Count MPV Immature Gran % Neutrophils % Band Neutrophils % Lymphocytes % Monocytes % Eosinophils % Basophils % Absolute Neutrophils Absolute Lymphocytes Absolute Monocytes Absolute Eosinophils Absolute Basophils Metamyelocytes Differential Comment RBC Morphology Polychromasia Sample Site Right radial pCO2 22 L pO2 57 L O2 Saturation 93 L ABG pH 7.52 H ABG HCO3 19 L ABG Total CO2 19 L ABG Base Excess -4.0 L Oxygen Liter Flow Room air FiO2 21 Sodium Potassium Chloride Carbon Dioxide Anion Gap BUN Creatinine Estimated GFR/1.73 m2 Glucose Calcium Magnesium Total Bilirubin Conjugated Bilirubin AST ALT Alkaline Phosphatase Creatine Kinase C-Reactive Protein Total Protein Albumin TSH Free T4 Urine Color Urine Clarity Urine pH Ur Specific [place] Urine Protein Urine Ketones Urine Blood Urine Nitrite Urine Bilirubin Urine Urobilinogen Ur Leukocyte Esterase Urine RBC Urine WBC Ur Epithelial Cells Urine Crystals Urine Bacteria Urine Casts Urine Mucus Urine Other Ur Culture Indicated? Urine Glucose Vancomycin Trough Cancelled
--- NOTE | 2018-03-24 07:53 | DI.RAD_ITS ---
SYMPTOMS/DIAGNOSIS: DYSPNEA, PNEUMONIA, CHF, ? ARDS PORTABLE AP CHEST AT 8:14 AM: Comparison with the day prior. There is a multifocal infiltrate again seen without significant change suspicious for pneumonia. The heart size and pulmonary vasculature appears stable. IMPRESSION: Stable multifocal infiltrate suspicious for pneumonia.
[2018-03-24 08:35] LABS: Site Right Radial
[2018-03-24 08:37] LABS: FIO2L 2 lpm L; HCO3 22 mmol/L (22-28); pCO2 28 mmHg (34-47); pO2 53 mmHg (83-108); sO2 91 % (94-98); tCO2 23 mmol/L (22-29)
[2018-03-24] MEDS: Pantoprazole 40 MG VIAL IVP (08:46)
[2018-03-24] MEDS: Nicotine 14 MG/24 HR PATCH TD (08:49)
[2018-03-24 09:36] LABS: Abs Immature Grans 0.07 k/cumm (0.0-0.09); Absolute Basophil Count 0.02 k/cumm (0.0-0.2); Basophils % 0.1; HCT 32.3 % (36.0-46.0); HGB 11.1 g/dL (12.0-15.5); Immature Grans % 0.3; Lymphocytes % 6.8; Mean Corp. HGB Concentration 34.4 g/dL (32.0-36.0); Mean Corpuscular Hemoglobin 30.5 pg (27.0-33.0); Mean Corpuscular Volume 88.7 fL (80-95); Mean Platelet Volume 13.2 fL (8.0-11.0); Monocytes % 2.6; Neutrophils % 90.2; Platelet Count 67 x1000/uL (130-400); RBC 3.64 m/cumm (4.00-5.20); RBC Distribution Width 13.8 % (11.7-14.6); White Blood Cell Count 20.55 k/cumm (4.4-10.8)
[2018-03-24 09:38] LABS: Absolute Monocyte Count 0.53 k/cumm (0.11-0.7); Absolute Neutrophil Count 18.54 k/cumm (1.2-6.7)
[2018-03-24 09:54] LABS: Anion Gap 9.1 mmol/L (3-11); BUN 14 mg/dL (7-18); CO2 26.9 mmol/L (21.0-32.0); CREATININE 1.01 mg/dL (0.55-1.02); Calcium 8.1 mg/dL (8.5-10.1); Chloride 109 mmol/L (98-107); Estimated GFR 57.12 (mL/min/1.73m2); Glucose 104 mg/dL (70-100); Magnesium 1.7 mg/dL (1.8-2.4); NT-proBNP 7422 pg/mL; Sodium 145 mmol/L (136-145)
[2018-03-24 09:56] LABS: Basophilic Stippling Present; Diff Comment PLT Morph Reviewed; Polychromasia Present
[2018-03-24] MEDS: Potassium Chloride 10 MEQ CAPCR 40 MEQ PO (09:57)
[2018-03-24 09:58] LABS: Potassium 2.9 mmol/L (3.5-5.1)
[2018-03-24] MEDS: Potassium Chloride 20 MEQ TABCR 40 MEQ PO ×2 (10:26→16:15)
[2018-03-24] MEDS: POTASSIUM CHLORIDE 20 MEQ/100 ML BAG 50 MEQ IVPB ×2 (10:26→12:22)
[2018-03-24] MEDS: Albuterol 2.5 MG/3 ML INH SOLN VIAL UPD (10:31)
[2018-03-24] MEDS: MAGNESIUM SULFATE 2 GM/50 ML BAG IVPB (11:19)
[2018-03-24 14:18] LABS: Site Right Radial; pCO2 27 mmHg (34-47); pO2 69 mmHg (83-108); sO2 95 % (94-98); tCO2 22 mmol/L (22-29)
[2018-03-24 14:19] LABS: HCO3 21 mmol/L (22-28)
[2018-03-24 14:29] LABS: ALT 150 U/L (12-78); AST 84 U/L (15-37); Albumin 2.3 g/dL (3.4-5.0); Alkaline Phosphatase 132 U/L (46-116); Bilirubin, Direct 0.84 mg/dL (0.00-0.20); Bilirubin, Total 1.4 mg/dL (0.2-1.0); Total Protein 6.3 g/dL (6.4-8.2)
[2018-03-24] MEDS: methylPREDNISolone SUCC 125 MG VIAL IVP (14:40)
--- NOTE | 2018-03-24 15:46 | PDOC.CMPRO ---
Care Management Progress Note Adi was transferred to tertiary center for further treatment.
--- NOTE | 2018-03-24 16:19 | W.PM.DS.N ---
Date of service: 03/24/18 Time of Service: 16:19 DS: Diagnosis Discharge Diagnosis (1) Acute respiratory failure with hypoxia: Status: Acute (2) ARDS (adult respiratory distress syndrome): Status: Acute (3) Serratia septicemia: Status: Acute (4) Septic shock: Status: Resolved (5) Community acquired pneumonia: Status: Acute (6) Shock liver: Status: Acute (7) Fluid overload: Status: Resolved Asessment and Plan: presently euvolemic (8) IV drug abuse: Status: Chronic (9) Hepatic insufficiency: Status: Acute (10) Ascites: Status: Acute (11) GERD (gastroesophageal reflux disease): Status: Chronic (12) Thrombocytopenia: Status: Chronic (13) Coagulopathy: Status: Acute (14) Hypomagnesemia: Status: Acute (15) Hypokalemia: Status: Acute (16) Hepatitis C: Status: Chronic (17) Tobacco use disorder: Status: Chronic (18) Methadone dependence: Status: Chronic (19) Cocaine abuse: Status: Chronic Discharge Plan Disposition Patient Disposition: [facility] Condition: Critical Discharge Details Reason For Visit: SEPSIS Admit Date/Time: 03/21/18 19:14 Admit Provider: Donaldo Real Attending Provider: Donaldo Real Primary Care Provider: Carla Corrales Hospital Course Hospital Course: Ms Salas is a 53 year old female with PMHx of IV drug abuse (fentanyl), cocaine abuse, as well as hepatitis C and GERD, who was admitted to [facility] ICU on 03/21/18 for septic shock following injection of IV drugs. She was initiated on IV vancomycin, cefepime, aggressive IV fluids. Ultimately, she required less than 24 hours of vasopressor support and did not required intubation. The septic workup revealed Serratia Liquefaciens bacteremia and multifocal pneumonia. Repeat blood cultures done on 03/23/18 are showing no growth to date. Her transthoracic echocardiogram showed a LVEF of 55-60% and no evidence of valvular pathology. Additionally, there was evidence of DEANNA, which has now resolved, as well as shock liver in addition to her already known liver disease from hepatitis C, with coagulopathy and thrombocytopenia. An ultrasound of the abdomen was obtained to ensure that there was no cholecystitis - and, while the ultrasound did show cholelithiasis, gallbladder wall thickening, as well as a positive Porter's sign, per our General Surgery service, the patient does not have acute cholecystitis, but does have hepatic insufficiency from hepatitis C and shock liver. It was felt that no surgical intervention was going to be needed. On 03/23/18, the patient developed noticeable respiratory distress. Her workup revealed diffuse pulmonary infiltrates on CXR, fluffy in appearance. The patient was diuresed with mild improvement, despite aggressive diuresis, with subsequent worsening of respiratory status despite being euvolemic. Her ABG revealed respiratory alkalosis and hypoxemia (pH of 7.52, pO2 of 57 on room air). PE was ruled out by negative CTA, which showed bilateral pleural effusions and bilateral airspace opacities. The patient was diuresed aggressively and, despite this, by 03/24/18, the patient's respiratory status is worsening, requiring humidified heated high flow nasal canula at 50 L/40% FiO2, with pO2 on ABG 69. Her PaO2/FiO2 ratio is 172.5, consistent with moderate ARDS, as is her imagining and her worsening hypoxic respiratory failure despite her near euvolemic status. Her SOFA score is 6 at this time. She is receiving IV solumedrol, and her antibiotics were expanded to include levofloxacin (in addition to vancomycin and cefepime). Because her condition is deteriorating rapidly, we obtained a phone consultation with pulmonology at [facility] (Dr Laws), who also felt the patient would benefit from a transfer to a tertiary care facility to a critical care bed. No beds were available at [facility]. Dr Lux at [facility] agreed to accept the patient in the ICU there. The patient consents to transfer. We appreciate the help of our [facility] colleagues and wish the patient well. Home Meds and New Rx's Prescriptions: No Action doxepin 10 MG capsule 10 mg PO HS RF: 0 aripiprazole [Abilify] 5 MG tablet 5 mg PO DAILY RF: 0 sertraline [Zoloft] 100 MG tablet 200 mg PO DAILY RF: 0 buprenorphine-naloxone 1 TAB tablet, sublingual 2 tab PO DAILY RF: 0 ProAir HFA 200 PUFF HFA aerosol inhaler 2 puff Inhalation Q6H Qty: 1 RF: 0 cyclobenzaprine 10 MG tablet 10 mg PO Q8H PRN PRN (Reason: Pain) Qty: 10 RF: 0 Discharge Instructions Instructions: Acute Respiratory Distress Syndrome (DC), Sepsis (GEN), Bacterial Pneumonia (DC) Additional Instructions: Follow up with pulmonary rehab once you've recovered! Activity:: bedrest Equipment/Supplies:: CPAP for transport Diet:: NPO Discharge Orders Discharge Orders: Discharge Order (Routine); Ordered 03/24/18 Ordered By: Roxie Reed Exam Narrative Exam Narrative: General: Middle aged female, laying in bed, more tachypneic, despite being on high flow humidified O2 HEENT: EOMI, MMM Heart: RRR, tachycardic Lungs: quiet rales B GI: abdomen soft, nontender, nondistended Extremities: Ecchymosis R elbow; Hyperpigmentation BLE's/feet, no edema today, no clubbing or cyanosis DS: Data Vitals/I&O Vitals and I&O: Vital Signs Temperature 37.2 C 03/24/18 15:45 Temperature Source Temporal Artery Scan 03/24/18 15:45 Pulse 108 H 03/24/18 15:45 Pulse 104 H 03/24/18 15:01 Respiratory Rate 25 H 03/24/18 15:45 Respiratory Effort 03/24/18 15:45 Respiratory Depth Normal 03/24/18 15:45 Respiratory Pattern Normal 03/24/18 15:45 Blood Pressure 149/78 H 03/24/18 15:45 Blood Pressure Mean 101 03/24/18 15:45 Blood Pressure Position Sitting 03/24/18 08:28 Pulse Oximetry 94 L 03/24/18 15:45 Oxygen Delivery Method Hi Flow System 03/24/18 15:45 Oxygen Flow Rate 0 03/24/18 15:45 Fraction of Inspired Oxygen (FIO2) 38 03/24/18 13:13 Pain Level 0 03/24/18 15:45 Comment 03/23/18 20:52 Intake & Output 03/23/18 03/24/18 03/24/18 23:59 11:59 23:59 Intake Total 1144.167 / 3054.167 450 / 546.667 96.667 / 546.667 Output Total 4050 / 18662 3000 / 6500 3500 / 6500 Balance -2905.833 / -7845.833 -2550 / -5953.333 -3403.333 / -5953.333 Weight 67.2 kg Intake: IV 294.167 / 744.167 450 / 546.667 96.667 / 546.667 Oral 850 / 2310 Output: Urine 4050 / 92789 2900 / 6400 3500 / 6400 Stool 100 / 100 Other: Urine Color Dark Gemma Yellow Yellow Urine Appearance Cloudy Clear Clear Comment stephen to gravity with large amount of medium yellow urine in it large output of dark yellow urine that is moderate +for blood with SG of 1.010 Stool Occult Blood Negative Negative Stool Size Smear Small Stool Characteristics Liquid Soft Voiding Methods Indwelling Catheter Completed studies during hospitalization [Text1]: CXR 03/21/18: Findings which most likely represent an acute pneumonitis. A follow up PA and lateral chest is suggested when clinically appropriate or in 6-[address] chest/abdomen/pelvis 03/22/18: Findings consistent with bilateral pleural effusions, pulmonary infiltrates and hilar and mediastinal adenopathy. These findings could certainly be on the basis of an acute pneumonitis and a concomitant malignancy. Additional information would be of value in the further imaging of this patient. A small quantity of ascitic fluid is demonstrated with puddling in the pelvis on this examination. There are findings involving the pancreas and peripancreatic tissues, raising the possibility of acute pancreatitis. Also, there is a dilated gallbladder and a considerable quantity of pericholecystic fluid. Increased absorption in the mesenteric fat and increased absorption in the subcutaneous fat is identified in this patient, the findings suggesting anasarca. TTE 03/22/18: 1. Left ventricle: The cavity size was normal. Wall thickness was normal. Systolic function was normal. The estimated ejection fraction was 55-60%. Wall motion was normal; there were no regional wall motion abnormalities. 2. Aortic valve: Trileaflet; mildly thickened, mildly calcified leaflets. 3. Mitral valve: Mildly thickened leaflets. There was mild regurgitation. 4. Right ventricle: The cavity size was normal. Wall thickness was normal. Systolic function was normal. 5. Tricuspid valve: Structurally normal valve. There was mild-moderate regurgitation. 6. Pulmonary arteries: Pulmonary systolic pressure was increased, in the range of 35mm Hg to 45mm Hg. US venous BLE's: There is no evidence of DVT. Note is made of a right-sided femoral vein catheter. Normal left leg ultrasound. CXR 03/23/18: When compared with the prior study of the same day at 1:47 a.m. and allowing for differences in technique, there appears to be some overall mild clearing of the lungs. The left hemidiaphragm is poorly defined and I could not entirely exclude a small area of infiltration or atelectasis or a small left pleural effusion. The heart is unchanged in size. CTA chest 03/23/18: 1. No evidence of a pulmonary embolus, thoracic aortic dissection or aneurysm. 2. Moderate bilateral pleural effusions. 3. Bilateral airspace opacities. Primary diagnostic concern is for pulmonary edema but a multifocal pneumonia can not excluded. 4. Thoracic adenopathy. This may be reactive. CXR 03/24/18: Stable multifocal infiltrate suspicious for pneumonia. Labs on day of discharge: Labs from last 24 hours 03/24/18 03/24/18 03/24/18 17:00 14:15 09:00 WBC 20.55 H RBC 3.64 L Hgb 11.1 L Hct 32.3 L MCV 88.7 MCH 30.5 MCHC 34.4 RDW 13.8 Plt Count 67 L MPV 13.2 H Immature Gran % 0.3 Neutrophils % 90.2 Lymphocytes % 6.8 Monocytes % 2.6 Eosinophils % 0.0 Basophils % 0.1 Absolute Neutrophils 18.54 H Absolute Lymphocytes 1.40 Absolute Monocytes 0.53 Absolute Eosinophils 0.00 Absolute Basophils 0.02 Differential Comment Plt morph reviewed RBC Morphology See below Polychromasia Present Basophilic Stippling Present Sample Site Right radial pCO2 27 L pO2 69 L O2 Saturation 95 ABG pH 7.50 H ABG HCO3 21 L ABG Total CO2 22 ABG Base Excess -2.0 Oxygen Liter Flow FiO2 39% hfnc Sodium Potassium Chloride Carbon Dioxide Anion Gap BUN Creatinine Estimated GFR/1.73 m2 Glucose Calcium Magnesium Total Bilirubin Conjugated Bilirubin AST ALT Alkaline Phosphatase NT-Pro-B Natriuret Pep Total Protein Albumin Vancomycin Trough Pending HIV 1&2 Ag/Ab, 4th Gen Legionella Source Legionella Reprt Status L.pneumophila Antibody Legionella Final Result M. pneumoniae Source M. pneumoniae (PCR) Ur Strep pneumoniae Ag 03/24/18 03/24/18 03/24/18 09:00 07:55 05:35 WBC RBC Hgb Hct MCV MCH MCHC RDW Plt Count MPV Immature Gran % Neutrophils % Lymphocytes % Monocytes % Eosinophils % Basophils % Absolute Neutrophils Absolute Lymphocytes Absolute Monocytes Absolute Eosinophils Absolute Basophils Differential Comment RBC Morphology Polychromasia Basophilic Stippling Sample Site Right radial pCO2 28 L pO2 53 L O2 Saturation 91 L ABG pH 7.50 H ABG HCO3 22 ABG Total CO2 23 ABG Base Excess -1.0 Oxygen Liter Flow 2 lpm FiO2 Sodium 145 Potassium 2.9 L* Chloride 109 H Carbon Dioxide 26.9 Anion Gap 9.1 BUN 14 D Creatinine 1.01 Estimated GFR/1.73 m2 57.12 Glucose 104 H D Calcium 8.1 L Magnesium 1.7 L Total Bilirubin 1.4 H Conjugated Bilirubin 0.84 H AST 84 H ALT 150 H Alkaline Phosphatase 132 H NT-Pro-B Natriuret Pep 7422 H Total Protein 6.3 L Albumin 2.3 L Vancomycin Trough HIV 1&2 Ag/Ab, 4th Gen Pending Legionella Source Legionella Reprt Status L.pneumophila Antibody Legionella Final Result M. pneumoniae Source M. pneumoniae (PCR) Ur Strep pneumoniae Ag 03/23/18 03/23/18 03/23/18 21:48 21:46 21:46 WBC RBC Hgb Hct MCV MCH MCHC RDW Plt Count MPV Immature Gran % Neutrophils % Lymphocytes % Monocytes % Eosinophils % Basophils % Absolute Neutrophils Absolute Lymphocytes Absolute Monocytes Absolute Eosinophils Absolute Basophils Differential Comment RBC Morphology Polychromasia Basophilic Stippling Sample Site pCO2 pO2 O2 Saturation ABG pH ABG HCO3 ABG Total CO2 ABG Base Excess Oxygen Liter Flow FiO2 Sodium Potassium Chloride Carbon Dioxide Anion Gap BUN Creatinine Estimated GFR/1.73 m2 Glucose Calcium Magnesium Total Bilirubin Conjugated Bilirubin AST ALT Alkaline Phosphatase NT-Pro-B Natriuret Pep Total Protein Albumin Vancomycin Trough HIV 1&2 Ag/Ab, 4th Gen Legionella Source Pending Legionella Reprt Status Pending L.pneumophila Antibody Legionella Final Result Pending M. pneumoniae Source Pending M. pneumoniae (PCR) Pending Ur Strep pneumoniae Ag Pending 03/23/18 09:00 WBC RBC Hgb Hct MCV MCH MCHC RDW Plt Count MPV Immature Gran % Neutrophils % Lymphocytes % Monocytes % Eosinophils % Basophils % Absolute Neutrophils Absolute Lymphocytes Absolute Monocytes Absolute Eosinophils Absolute Basophils Differential Comment RBC Morphology Polychromasia Basophilic Stippling Sample Site pCO2 pO2 O2 Saturation ABG pH ABG HCO3 ABG Total CO2 ABG Base Excess Oxygen Liter Flow FiO2 Sodium Potassium Chloride Carbon Dioxide Anion Gap BUN Creatinine Estimated GFR/1.73 m2 Glucose Calcium Magnesium Total Bilirubin Conjugated Bilirubin AST ALT Alkaline Phosphatase NT-Pro-B Natriuret Pep Total Protein Albumin Vancomycin Trough HIV 1&2 Ag/Ab, 4th Gen Legionella Source Legionella Reprt Status L.pneumophila Antibody Pending Legionella Final Result M. pneumoniae Source M. pneumoniae (PCR) Ur Strep pneumoniae Ag Preliminary micro results at discharge 03/23/18 11:05 Urine Culture - Preliminary Urine - Reflex from Ua 03/21/18 16:15 Blood Culture - Preliminary Blood Serratia Liquefaciens 03/21/18 16:20 Blood Culture - Preliminary Blood Serratia Liquefaciens 03/23/18 07:50 Blood Culture - Preliminary Blood NO GROWTH 24 HOURS 03/23/18 07:00 Blood Culture - Preliminary Blood NO GROWTH 24 HOURS PFSH Medical History Hypokalemia (Acute) Acute respiratory insufficiency (Acute) Bacteremia (Acute) Hypoxemia (Acute) IV drug abuse (Chronic) Gram negative sepsis (Acute) Alcohol abuse Chronic ulcer of leg with fat layer exposed Depression Dysfunctional uterine bleeding GERD (gastroesophageal reflux disease) Hep C w/o coma, chronic Hypercholesterolemia IV drug abuse Surgical History section Colonoscopy - MAC EGD - MAC Social History Smoking/Tobacco Use Status: Current every day
--- NOTE | 2018-03-24 18:28 | NUR.NOTE ---
Nursing Note: Confirmed with radiology that they have sent over patient's radiology reports.
--- NOTE | 2018-03-24 19:03 | RESPIRATORY ---
03/24/18-Pt left on [facility] Bipap 12/02 40% O2 for transport. Tolerated well. SPO2 98%, RR 42.
== END 2018-03-24 18:35 | DRG 871 ==
LOC: ER 18:55 → ICU 19:31
PROVIDERS: Internal Medicine; Admitting Provider General Practice; Emergency Provider Physician Assistant; PCP Nurse Practitioner; Visit Provider Internal Medicine
DX: A41.53 Sepsis due to Serratia (principal); R65.21 Severe sepsis with septic shock; J18.1 Lobar pneumonia, unspecified organism; J80 Acute respiratory distress syndrome; K72.00 Acute and subacute hepatic failure without coma; J96.01 Acute respiratory failure with hypoxia; J91.8 Pleural effusion in other conditions classified elsewhere; N17.9 Acute kidney failure, unspecified; R18.8 Other ascites; D68.9 Coagulation defect, unspecified; F11.20 Opioid dependence, uncomplicated; E87.3 Alkalosis; Z16.19 Resistance to other specified beta lactam antibiotics; F14.10 Cocaine abuse, uncomplicated; F11.10 Opioid abuse, uncomplicated; W46.1XXA Contact with contaminated hypodermic needle, initial encounter; F17.210 Nicotine dependence, cigarettes, uncomplicated; B18.2 Chronic viral hepatitis C; E87.70 Fluid overload, unspecified; K21.9 Gastro-esophageal reflux disease without esophagitis; D69.49 Other primary thrombocytopenia; E83.42 Hypomagnesemia; E87.6 Hypokalemia; K80.20 Calculus of gallbladder without cholecystitis without obstruction; I08.1 Rheumatic disorders of both mitral and tricuspid valves
CPT/HCPCS: 36415; 36556; 36591; 36592; 51702; 71250; 71275; 80048; 80053; 80076; 80307; 82550; 82805; 85027; 85652; 86713; 87040; 87077; 87389; 87449; 93005; 96361; 96365; 96368; 96375; 99223; 99253; 99291; 99292; 36600; 71045; 74176; 76700; 80202; 81003; 81015; 82247; 83605; 83735; 83880; 84439; 84443; 84450; 84460; 84484; 85025; 85610; 86140; 87086; 87186; 87450; 87581; 93010; 93306; 93970; 94640; J1720; J1941; J1956; J2405; J2930; J3430; J3475; J3480; J3490; J7613; J7620

== ENCOUNTER 2018-04-18 12:04 | Outpatient (CLI) | payer MEDICAID, SELFPAY ==
[2018-04-18 12:37] LABS: HGB 13.2 g/dL (12.0-15.5); Mean Corpuscular Hemoglobin 30.6 pg (27.0-33.0); Mean Corpuscular Volume 92.6 fL (80-95); Platelet Count 119 x1000/uL (130-400); RBC 4.32 m/cumm (4.00-5.20); RBC Distribution Width 14.8 % (11.7-14.6); White Blood Cell Count 3.62 k/cumm (4.4-10.8)
[2018-04-18 12:55] LABS: INR 0.9 (0.9-1.1); Prothrombin Time 9.3 sec (9.3-11.0)
[2018-04-18 13:31] LABS: ALT 153 U/L (12-78); AST 72 U/L (15-37); Albumin 3.2 g/dL (3.4-5.0); Alkaline Phosphatase 116 U/L (46-116); Anion Gap 7.8 mmol/L (3-11); BUN 17 mg/dL (7-18); Bilirubin, Total 0.3 mg/dL (0.2-1.0); CO2 29.2 mmol/L (21.0-32.0); CREATININE 0.61 mg/dL (0.55-1.02); Calcium 8.5 mg/dL (8.5-10.1); Chloride 103 mmol/L (98-107); Glucose 87 mg/dL (70-100); Potassium 3.9 mmol/L (3.5-5.1); Sodium 140 mmol/L (136-145); Total Protein 7.6 g/dL (6.4-8.2)
== END 2018-04-18 12:24 ==
PROVIDERS: PCP Nurse Practitioner; Visit Provider Family Medicine
DX: B19.20 Unspecified viral hepatitis C without hepatic coma (principal); K76.0 Fatty (change of) liver, not elsewhere classified
CPT/HCPCS: 36415; 80053; 85027; 85610